=== PATIENT | male | born 1995 | race Caucasian/White ===

== ENCOUNTER 2016-10-14 21:29 | Emergency (ER) | payer OTHER ==
[~2016-10-14] VITALS: Ht 172.7 cm; Wt 73.0 kg
[~2016-10-14 21:29] MED LIST: ALBUTEROL INHALER; FOLI-43 PO; GEMF600T PO; HALO5TAB PO; LEVVL SUBCUT; LISI2.5T47 PO; METF10002 PO; MULT-348 PO
[2016-10-15] MEDS ORDERED: ONDANSETRON HCL 4MG/2ML VIAL IV STA (00:04)
[2016-10-15] MEDS ORDERED: SODIUM CHLORIDE 0.9% 1,000 ML IV ONE (00:04)
[2016-10-15] MEDS ORDERED: MAGNESIUM/ALUMINUM HYDROXIDE/SIMETHICONE 30ML UDC PO STA (00:04)
[2016-10-15 00:33] LABS: BASOPHILS % 0.8 % (0.0-2.0); EOSINOPHILS % 7.4 % (0.0-5.0); HEMATOCRIT. 38.5 % (42.0-52.0); HEMOGLOBIN. 13.5 g/dL (14.0-18.0); LYMPHOCYTES % 49.5 % (20.0-50.0); MEAN CORPUSCULAR HEMOGLOBIN 29.2 pg (28.0-32.0); MEAN CORPUSCULAR HGB CONC 34.9 g/dL (31.0-37.0); MEAN CORPUSCULAR VOLUME 83.6 fL (80.0-94.0); MEAN PLATELET VOLUME 8.8 fl (7.4-10.4); MONOCYTES % 4.9 % (2.0-8.0); NEUTROPHILS % 37.4 % (40.0-76.0); PLATELET 224 x1000/uL (130-400); RED BLOOD CELL COUNT 4.61 mill/uL (4.7-6.1); RED CELL DISTRIBUTION WIDTH 13.4 % (11.6-14.6); WHITE BLOOD COUNT 5.6 x1000/uL (4.5-11.0)
[2016-10-15 00:35] LABS: CHLORIDE 102 mEq/L (98-107); INDEX HEMOLYSI 2 (1-3); INDEX ICTERIC 1 (1-4); INDEX LIPEMIC 1 (1-3)
[2016-10-15 00:41] LABS: ANION GAP 15; CALCIUM 8.1 mg/dL (8.5-10.1); CARBON DIOXIDE 24 mEq/L (21-32); LIPASE 89 IU/L (73-393); UREA NITROGEN BLOOD 13 mg/dL (7-21); eGFR > 60 mL/min (>60)
[2016-10-15 04:30] VITALS: BP 102/68
== END 2016-10-15 04:33 | disposition home or self-care (01) ==
LOC: ER 21:29
DX: R10.13 Epigastric pain (principal); J44.9 Chronic obstructive pulmonary disease, unspecified; J45.909 Unspecified asthma, uncomplicated; F20.9 Schizophrenia, unspecified; E11.9 Type 2 diabetes mellitus without complications; F17.200 Nicotine dependence, unspecified, uncomplicated; Z79.4 Long term (current) use of insulin
CPT/HCPCS: 36415; 71010; 80048; 83690; 85025; 96361; 96374; 99285; J2405; J7030; Z7610

== ENCOUNTER 2016-11-21 16:11 | Emergency (ER) | payer OTHER ==
[~2016-11-21] VITALS: Ht 175.3 cm; Wt 79.0 kg
[2016-11-21] MEDS ORDERED: FAMOTIDINE 20MG/2ML VIAL IV STA (17:27)
[2016-11-21] MEDS ORDERED: ONDANSETRON HCL 4MG/2ML VIAL IV STA (17:27)
[2016-11-21] MEDS ORDERED: KETOROLAC 30MG/ML VIAL IV STA (17:27)
[2016-11-21] MEDS ORDERED: SODIUM CHLORIDE 0.9% 1,000 ML IV ONE ×2 (17:27→19:15)
[2016-11-21 18:18] LABS: HEMATOCRIT. 37.6 % (42.0-52.0); MEAN CORPUSCULAR HEMOGLOBIN 28.4 pg (28.0-32.0); MEAN CORPUSCULAR HGB CONC 34.2 g/dL (31.0-37.0); MEAN CORPUSCULAR VOLUME 82.9 fL (80.0-94.0); RED CELL DISTRIBUTION WIDTH 13.5 % (11.6-14.6)
[2016-11-21 18:19] LABS: DIFFERENTIAL COMMENT 1; WHITE BLOOD COUNT 9.1 x1000/uL (4.5-11.0)
[2016-11-21 18:20] LABS: PLATELET 258 x1000/uL (130-400); RED BLOOD CELL COUNT 4.74 mill/uL (4.7-6.1)
[2016-11-21 18:21] LABS: MEAN PLATELET VOLUME 9.2 fl (7.4-10.4)
[2016-11-21 18:22] LABS: INR 0.9; PROTHROMBIN TIME 9.8 sec
[2016-11-21 18:26] LABS: HEMOGLOBIN. 12.9 g/dL (14.0-18.0)
[2016-11-21 18:43] LABS: ALBUMIN 3.5 g/dL (3.4-5.0); CALCIUM 7.8 mg/dL (8.5-10.1); CARBON DIOXIDE 24 mEq/L (21-32); LIPASE 214 IU/L (73-393); UREA NITROGEN BLOOD 13 mg/dL (7-21); eGFR > 60 mL/min (>60)
[2016-11-21 19:04] LABS: ALANINE AMINOTRANSFERASE 27 IU/L (13-61); ANION GAP 16; CHLORIDE 100 mEq/L (98-107)
[2016-11-21 19:21] LABS: CLARITY URINE CLEAR (CLEAR); COLOR URINE YELLOW (YELLOW); GLUCOSE URINE 3+ (NEGATIVE); KETONES URINE TRACE (NEGATIVE); LEUKOCYTE ESTERASE URINE NEGATIVE (NEGATIVE); NITRITE URINE NEGATIVE (NEGATIVE); OCCULT BLOOD URINE NEGATIVE (NEGATIVE); PROTEIN URINE 2+ (NEGATIVE); SPECIFIC GRAVITY URINE 1.031 (1.005-1.030); UROBILINOGEN URINE 0.2 E.U./dL (0.2-1.0)
[2016-11-21 19:33] LABS: PLATELET ESTIMATE NORMAL
[2016-11-21 19:54] LABS: BACTERIA URINE TRACE; RBC URINE 0-2 /hpf (0-2); WBC URINE 0-2 /hpf (0-2); YEAST URINE 1+
[2016-11-21 19:55] LABS: SQUAMOUS EPITHELIAL CELL URINE RARE /lpf (RARE/1+)
[2016-11-21] MEDS ORDERED: IPRATROPIUM/ALBUTEROL 0.5-3(2.5)MG/3ML NEB HHN ONE (20:15)
[2016-11-21 21:15] VITALS: BP 127/82
== END 2016-11-21 21:45 | disposition home or self-care (01) ==
LOC: ER 16:12
DX: R10.13 Epigastric pain (principal); R11.2 Nausea with vomiting, unspecified; E11.9 Type 2 diabetes mellitus without complications; F17.210 Nicotine dependence, cigarettes, uncomplicated; Z79.4 Long term (current) use of insulin; Z79.899 Other long term (current) drug therapy
CPT/HCPCS: 36415; 80053; 81001; 82010; 82962; 83690; 85025; 85610; 94640; 96361; 96374; 96375; 99284; J1885; J2405; J3490; J7030; Z7610; J7620

== ENCOUNTER 2017-01-01 20:49 | Emergency (ER) | payer MEDICAID, OTHER ==
[~2017-01-01] VITALS: Ht 170.2 cm; Wt 88.0 kg
[2017-01-02] MEDS ORDERED: ONDANSETRON HCL 4MG/2ML VIAL IV STA (00:06)
[2017-01-02] MEDS ORDERED: KETOROLAC 30MG/ML VIAL IV STA (00:06)
[2017-01-02 00:45] LABS: BASOPHILS % 0.9 % (0.0-2.0); EOSINOPHILS % 3.3 % (0.0-5.0); HEMATOCRIT. 37.4 % (42.0-52.0); HEMOGLOBIN. 13.3 g/dL (14.0-18.0); MEAN CORPUSCULAR HEMOGLOBIN 29.1 pg (28.0-32.0); MEAN CORPUSCULAR VOLUME 81.7 fL (80.0-94.0); MEAN PLATELET VOLUME 8.5 fl (7.4-10.4); MONOCYTES % 5.1 % (2.0-8.0); NEUTROPHILS % 70.7 % (40.0-76.0); PLATELET 230 x1000/uL (130-400); RED BLOOD CELL COUNT 4.58 mill/uL (4.7-6.1); RED CELL DISTRIBUTION WIDTH 13.5 % (11.6-14.6)
[2017-01-02 00:53] LABS: INR 1.1; PROTHROMBIN TIME 11.1 sec
[2017-01-02 01:00] LABS: CARBON DIOXIDE 23 mEq/L (21-32); CHLORIDE 94 mEq/L (98-107); ETHANOL BLOOD < 10 mg/dL
[2017-01-02 01:17] LABS: CLARITY URINE CLEAR (CLEAR); COLOR URINE YELLOW (YELLOW); GLUCOSE URINE 3+ (NEGATIVE); KETONES URINE TRACE (NEGATIVE); LEUKOCYTE ESTERASE URINE NEGATIVE (NEGATIVE); NITRITE URINE NEGATIVE (NEGATIVE); OCCULT BLOOD URINE NEGATIVE (NEGATIVE); PROTEIN URINE NEGATIVE (NEGATIVE); SPECIFIC GRAVITY URINE 1.024 (1.005-1.030); UROBILINOGEN URINE 0.2 E.U./dL (0.2-1.0)
[2017-01-02 01:39] LABS: *AMPHETAMINES SCREEN URINE NEGATIVE (NEGATIVE); *BENZODIAZEPINES SCREEN URINE NEGATIVE (NEGATIVE); *COCAINE SCREEN URINE NEGATIVE (NEGATIVE); CANNABINOID URINE SCREEN NEGATIVE (NEGATIVE); METHADONE URINE SCREEN NEGATIVE (NEGATIVE); OPIATES URINE SCREEN NEGATIVE (NEGATIVE); PHENCYCLIDINE URINE SCREEN NEGATIVE (NEGATIVE)
[2017-01-02] MEDS ORDERED: SODIUM CHLORIDE 0.9% 1,000 ML IV ONE ×2 (01:57)
[2017-01-02 02:05] LABS: *BARBITURATES SCREEN URINE NEGATIVE (NEGATIVE)
[2017-01-02] MEDS ORDERED: INSULIN REGULAR (HUMULIN R) 300UNITS/3ML SUBCUT ONE (04:30)
[2017-01-02 06:50] VITALS: BP 97/60
== END 2017-01-02 07:19 | disposition home or self-care (01) ==
LOC: ER 21:15
DX: K85.90 Acute pancreatitis without necrosis or infection, unspecified (principal); R73.9 Hyperglycemia, unspecified; E86.0 Dehydration; F20.9 Schizophrenia, unspecified
CPT/HCPCS: 36415; 80053; 80305; 81001; 82962; 83690; 85025; 85610; 96361; 96372; 96374; 96375; 99285; G0482; J1885; J2405; J7030; Z7610; J1815

== ENCOUNTER 2017-04-11 13:26 | Inpatient (IN) | payer MEDICAID ==
[~2017-04-11] VITALS: Ht 172.7 cm; Wt 86.2 kg
[2017-04-11] MEDS ORDERED: ONDANSETRON HCL 4MG/2ML VIAL IV STA ×2 (14:29→20:17)
[2017-04-11] MEDS ORDERED: KETOROLAC 30MG/ML VIAL IV STA (14:29)
[2017-04-11] MEDS ORDERED: SODIUM CHLORIDE 0.9% 1,000 ML IV ONE ×2 (14:29)
[2017-04-11] MEDS ORDERED: INSULIN REGULAR (HUMULIN R) UD 100 UNITS/ML SYR SUBCUT ONE (14:30)
[2017-04-11] MEDS ORDERED: FAMOTIDINE 20MG/2ML VIAL IV ONE (14:30)
[2017-04-11] MEDS ORDERED: INSULIN REGULAR (HUMULIN R) 300UNITS/3ML SUBCUT NR (16:15)
[2017-04-11 16:32] LABS: CARBON DIOXIDE 17 mEq/L (21-32); CHLORIDE 93 mEq/L (98-107)
[2017-04-11 16:40] LABS: BETA HYDROXYBUTYRATE 6.4 mMol/L (0.0-0.3)
[2017-04-11 16:41] LABS: ETHANOL BLOOD < 10 mg/dL
[2017-04-11 17:07] LABS: CLARITY URINE CLEAR (CLEAR); COLOR URINE YELLOW (YELLOW); GLUCOSE URINE 3+ (NEGATIVE); KETONES URINE 4+ (NEGATIVE); LEUKOCYTE ESTERASE URINE NEGATIVE (NEGATIVE); NITRITE URINE NEGATIVE (NEGATIVE); OCCULT BLOOD URINE NEGATIVE (NEGATIVE); PROTEIN URINE 2+ (NEGATIVE); SPECIFIC GRAVITY URINE 1.044 (1.005-1.030); UROBILINOGEN URINE 0.2 E.U./dL (0.2-1.0)
[2017-04-11] MEDS ORDERED: INSULIN REGULAR (HUMULIN R) UD 100 UNITS/ML SYR IV ONE (17:15)
[2017-04-11 17:25] LABS: *AMPHETAMINES SCREEN URINE NEGATIVE (NEGATIVE); *BARBITURATES SCREEN URINE NEGATIVE (NEGATIVE); *BENZODIAZEPINES SCREEN URINE NEGATIVE (NEGATIVE); *COCAINE SCREEN URINE NEGATIVE (NEGATIVE); CANNABINOID URINE SCREEN NEGATIVE (NEGATIVE); METHADONE URINE SCREEN NEGATIVE (NEGATIVE); OPIATES URINE SCREEN NEGATIVE (NEGATIVE); PHENCYCLIDINE URINE SCREEN NEGATIVE (NEGATIVE)
[2017-04-11 17:28] LABS: BASOPHILS % 0.6 % (0.0-2.0); EOSINOPHILS % 1.3 % (0.0-5.0); HEMATOCRIT. 44.4 % (42.0-52.0); LYMPHOCYTES % 17.3 % (20.0-50.0); MEAN CORPUSCULAR VOLUME 79.4 fL (80.0-94.0); MEAN PLATELET VOLUME 9.5 fl (7.4-10.4); MONOCYTES % 3.3 % (2.0-8.0); NEUTROPHILS % 77.5 % (40.0-76.0); PLATELET 230 x1000/uL (130-400); RED BLOOD CELL COUNT 5.59 mill/uL (4.7-6.1)
[2017-04-11 17:29] LABS: HEMOGLOBIN. 14.2 g/dL (14.0-18.0)
[2017-04-11 17:30] LABS: MEAN CORPUSCULAR HEMOGLOBIN 25.4 pg (28.0-32.0)
[2017-04-11] MEDS ORDERED: INSULIN REGULAR (HUMULIN R) 300UNITS/3ML IV NR (17:56)
[2017-04-11 18:01] LABS: CARBON DIOXIDE 18 mEq/L (21-32); CHLORIDE 101 mEq/L (98-107)
[2017-04-11 18:02] LABS: BETA HYDROXYBUTYRATE 6.1 mMol/L (0.0-0.3)
[2017-04-11] MEDS ORDERED: FLUCONAZOLE 100MG TABLET PO ONE (19:00)
[2017-04-11] MEDS ORDERED: CEFTRIAXONE 1 G PREMIX 50 ML IV ONE (19:00)
[2017-04-11] MEDS ORDERED: MORPHINE SULFATE 4 MG/ML CPJ (NOT FOR IM USE) IV STA (20:17)
[2017-04-11] MEDS ORDERED: KETOROLAC 30MG/ML VIAL IV PRN (20:45)
[2017-04-11] MEDS ORDERED: MAGNESIUM/ALUMINUM HYDROXIDE/SIMETHICONE 30ML UDC PO PRN (20:45)
[2017-04-11] MEDS ORDERED: ONDANSETRON HCL 4MG/2ML VIAL IV PRN (20:45)
[2017-04-11] MEDS ORDERED: CLONIDINE 0.1MG TABLET PO PRN (20:45)
[2017-04-11] MEDS ORDERED: IPRATROPIUM/ALBUTEROL 0.5-3(2.5)MG/3ML NEB INH PRN (20:45)
[2017-04-11 21:30] VITALS: BP 123/82
[2017-04-11 22:00] VITALS: BP 123/82
[2017-04-11] MEDS ORDERED: DEXTROSE 50% WATER 50ML SYRINGE IV PRN (23:00)
[2017-04-11] MEDS: SODIUM CHLORIDE 0.9% 1,000 ML IV SCH (23:21)
[2017-04-11] MEDS: INSULIN DETEMIR UD 100 UNITS/ML SYR SUBCUT SCH (23:26)
[2017-04-11] MEDS: ENOXAPARIN 40MG/0.4ML SYR SUBCUT SCH (23:30)
[2017-04-11 23:39] LABS: CREATINE KINASE 29 IU/L (39-308); CREATINE KINASE MB FRACTION < 0.5 ng/mL (0.5-3.6); TROPONIN I < 0.02 ng/mL (0.00-0.04)
[2017-04-12] VITALS: BP 127/85
[2017-04-12] MEDS: MORPHINE SULFATE 4 MG/ML CPJ (NOT FOR IM USE) IV PRN ×6 (00:33→22:41)
[2017-04-12 04:00] VITALS: BP 130/83
[2017-04-12] MEDS: SODIUM CHLORIDE 0.9% 1,000 ML IV SCH ×3 (06:20→22:46)
[2017-04-12 06:57] LABS: BASOPHILS % 0.5 % (0.0-2.0); HEMATOCRIT. 43.9 % (42.0-52.0); HEMOGLOBIN. 15.2 g/dL (14.0-18.0); LYMPHOCYTES % 7.7 % (20.0-50.0); MEAN CORPUSCULAR HEMOGLOBIN 28.1 pg (28.0-32.0); MEAN CORPUSCULAR VOLUME 81.1 fL (80.0-94.0); MONOCYTES % 4.6 % (2.0-8.0); NEUTROPHILS % 87.2 % (40.0-76.0); PLATELET 169 x1000/uL (130-400); RED BLOOD CELL COUNT 5.42 mill/uL (4.7-6.1); RED CELL DISTRIBUTION WIDTH 14.8 % (11.6-14.6)
[2017-04-12] MEDS: INSULIN LISPRO 100 UNITS/ML SUBCUT SCH ×5 (07:04→21:24)
[2017-04-12] MEDS: BLOOD SUGAR DIAGNOSTIC STRIP TEST SCH ×4 (07:04→21:21)
[2017-04-12 07:36] LABS: CARBON DIOXIDE 13 mEq/L (21-32); CHLORIDE 106 mEq/L (98-107); CREATINE KINASE 25 IU/L (39-308); CREATINE KINASE MB FRACTION < 0.5 ng/mL (0.5-3.6); HDL CHOLESTEROL 19 mg/dL (40-59); LDL CHOLESTEROL 61 mg/dL (5-100); TROPONIN I < 0.02 ng/mL (0.00-0.04)
[2017-04-12 08:00] VITALS: BP 132/80
[2017-04-12] MEDS: FENOFIBRATE NANOCRYSTALLIZED 145MG TABLET PO SCH (08:59)
[2017-04-12] MEDS: INSULIN DETEMIR UD 100 UNITS/ML SYR SUBCUT SCH ×2 (10:23→22:45)
[2017-04-12 12:00] VITALS: BP 122/74
[2017-04-12] MEDS ORDERED: DEXTROSE 50% WATER 50ML SYRINGE IV PRN (12:45)
[2017-04-12 16:00] VITALS: BP 116/76
[2017-04-12] MEDS ORDERED: BLOOD SUGAR DIAGNOSTIC STRIP TEST SCH (17:10)
[2017-04-12] MEDS: BENZTROPINE MESYLATE 1MG TABLET PO SCH (17:22)
[2017-04-12] MEDS: HALOPERIDOL 5MG TABLET PO SCH (17:22)
[2017-04-12 20:00] VITALS: BP 104/62
[2017-04-12] MEDS: ENOXAPARIN 40MG/0.4ML SYR SUBCUT SCH (21:22)
[2017-04-13] VITALS: BP 100/54
[2017-04-13 04:00] VITALS: BP 96/56
[2017-04-13] MEDS: SODIUM CHLORIDE 0.9% 1,000 ML IV SCH ×2 (06:31→15:51)
[2017-04-13] MEDS: BLOOD SUGAR DIAGNOSTIC STRIP TEST SCH ×4 (06:31→20:56)
[2017-04-13] MEDS: INSULIN LISPRO 100 UNITS/ML SUBCUT SCH ×4 (06:31→21:07)
[2017-04-13 06:39] LABS: BASOPHILS % 0.3 % (0.0-2.0); EOSINOPHILS % 2.2 % (0.0-5.0); HEMATOCRIT. 36.8 % (42.0-52.0); HEMOGLOBIN. 12.7 g/dL (14.0-18.0); LYMPHOCYTES % 24.7 % (20.0-50.0); MEAN CORPUSCULAR HEMOGLOBIN 28.1 pg (28.0-32.0); MEAN CORPUSCULAR VOLUME 81.6 fL (80.0-94.0); MEAN PLATELET VOLUME 8.6 fl (7.4-10.4); MONOCYTES % 6.1 % (2.0-8.0); NEUTROPHILS % 66.7 % (40.0-76.0); PLATELET 120 x1000/uL (130-400); RED BLOOD CELL COUNT 4.51 mill/uL (4.7-6.1); RED CELL DISTRIBUTION WIDTH 15.1 % (11.6-14.6)
[2017-04-13 08:00] VITALS: BP 98/54
[2017-04-13 08:14] LABS: CARBON DIOXIDE 21 mEq/L (21-32); CHLORIDE 107 mEq/L (98-107)
[2017-04-13] MEDS: HALOPERIDOL 5MG TABLET PO SCH (09:16)
[2017-04-13] MEDS: BENZTROPINE MESYLATE 1MG TABLET PO SCH (09:16)
[2017-04-13] MEDS: FENOFIBRATE NANOCRYSTALLIZED 145MG TABLET PO SCH (09:16)
[2017-04-13] MEDS: MORPHINE SULFATE 4 MG/ML CPJ (NOT FOR IM USE) IV PRN (09:23)
[2017-04-13] MEDS: INSULIN DETEMIR UD 100 UNITS/ML SYR SUBCUT SCH ×2 (10:39→21:07)
[2017-04-13] MEDS ORDERED: HYDROCODONE/ACETAMINOPHEN 5/325MG TABLET PO PRN (10:45)
[2017-04-13] MEDS ORDERED: POTASSIUM CHLORIDE 20MEQ TABLET SR PO NR (11:00)
[2017-04-13 12:00] VITALS: BP 97/63
[2017-04-13 16:00] VITALS: BP 94/48
[2017-04-13 20:11] VITALS: BP 91/51
[2017-04-13] MEDS: ENOXAPARIN 40MG/0.4ML SYR SUBCUT SCH (21:03)
[2017-04-14] VITALS: BP 98/47
[2017-04-14 04:00] VITALS: BP 95/42
[2017-04-14] MEDS: SODIUM CHLORIDE 0.9% 1,000 ML IV SCH (04:30)
[2017-04-14] MEDS: INSULIN LISPRO 100 UNITS/ML SUBCUT SCH ×2 (06:29→12:31)
[2017-04-14] MEDS: BLOOD SUGAR DIAGNOSTIC STRIP TEST SCH ×2 (06:29→12:31)
[2017-04-14 07:23] LABS: BASOPHILS % 0.4 % (0.0-2.0); HEMATOCRIT. 32.4 % (42.0-52.0); HEMOGLOBIN. 11.1 g/dL (14.0-18.0); LYMPHOCYTES % 35.2 % (20.0-50.0); MEAN CORPUSCULAR HEMOGLOBIN 27.9 pg (28.0-32.0); MEAN CORPUSCULAR VOLUME 81.2 fL (80.0-94.0); MEAN PLATELET VOLUME 8.7 fl (7.4-10.4); MONOCYTES % 10.4 % (2.0-8.0); PLATELET 93 x1000/uL (130-400); RED CELL DISTRIBUTION WIDTH 15.4 % (11.6-14.6)
[2017-04-14 08:00] VITALS: BP 110/69
[2017-04-14 08:38] LABS: CHLORIDE 109 mEq/L (98-107)
[2017-04-14 08:50] LABS: CARBON DIOXIDE 26 mEq/L (21-32)
[2017-04-14] MEDS: FENOFIBRATE NANOCRYSTALLIZED 145MG TABLET PO SCH (09:03)
[2017-04-14] MEDS: BENZTROPINE MESYLATE 1MG TABLET PO SCH (09:03)
[2017-04-14] MEDS: HALOPERIDOL 5MG TABLET PO SCH (09:03)
[2017-04-14] MEDS: INSULIN DETEMIR UD 100 UNITS/ML SYR SUBCUT SCH (09:50)
[2017-04-14] MEDS ORDERED: POTASSIUM CHLORIDE 20MEQ TABLET SR PO NR (10:15)
[2017-04-14] MEDS: MORPHINE SULFATE 4 MG/ML CPJ (NOT FOR IM USE) IV PRN (10:46)
[2017-04-14 12:00] VITALS: BP 103/58
[2017-04-14 15:09] VITALS: BP 103/58
== END 2017-04-14 16:10 | disposition home or self-care (01) | DRG 282 ==
LOC: ER 13:36 → 8WST 18:26 → EDBEDREQ 18:28 → ENRESERV 19:08
PROVIDERS: ADMIT Internal Medicine; ATTEND Internal Medicine
DX: K85.90 Acute pancreatitis without necrosis or infection, unspecified (principal); R65.11 Systemic inflammatory response syndrome (SIRS) of non-infectious origin with acute organ dysfunction; E13.10 Other specified diabetes mellitus with ketoacidosis without coma; E87.8 Other disorders of electrolyte and fluid balance, not elsewhere classified; E11.65 Type 2 diabetes mellitus with hyperglycemia; I10 Essential (primary) hypertension; D18.03 Hemangioma of intra-abdominal structures; F10.10 Alcohol abuse, uncomplicated; E07.81 Sick-euthyroid syndrome; E78.1 Pure hyperglyceridemia; Z79.4 Long term (current) use of insulin; Z91.14 Patient's other noncompliance with medication regimen; Z79.84 Long term (current) use of oral hypoglycemic drugs; Z79.899 Other long term (current) drug therapy; E83.51 Hypocalcemia
CPT/HCPCS: 36415; 71010; 76705; 80048; 80053; 80061; 80305; 81001; 82010; 82550; 82553; 82962; 83690; 83735; 84443; 84484; 85025; 86850; 86900; 87040; 87086; 93005; 93970; 94640; 96361; 96374; 96375; 96376; 99291; G0482; J0696; J1630; J1650; J1815; J1885; J2270; J2405; J3490; J7030; J7620

== ENCOUNTER 2017-07-17 14:22 | Inpatient (IN) | payer MEDICAID ==
[~2017-07-17] VITALS: Ht 172.7 cm; Wt 86.6 kg
[~2017-07-17 14:22] MED LIST changes: +BENZ1TAB7 GT
[2017-07-17] MEDS ORDERED: MORPHINE SULFATE 4 MG/ML CPJ (NOT FOR IM USE) IV STA (22:49)
[2017-07-17] MEDS ORDERED: ONDANSETRON HCL 4MG/2ML VIAL IV STA (22:49)
[2017-07-17] MEDS ORDERED: KETOROLAC 30MG/ML VIAL IV STA (22:49)
[2017-07-17] MEDS ORDERED: SODIUM CHLORIDE 0.9% 1,000 ML IV ONE ×2 (22:49→23:57)
[2017-07-17 23:41] LABS: BASOPHILS % 0.3 % (0.0-2.0); EOSINOPHILS % 4.3 % (0.0-5.0); HEMATOCRIT. 36.7 % (42.0-52.0); HEMOGLOBIN. 12.3 g/dL (14.0-18.0); LYMPHOCYTES % 22.9 % (20.0-50.0); MEAN CORPUSCULAR HEMOGLOBIN 28.8 pg (28.0-32.0); MEAN CORPUSCULAR VOLUME 86.1 fL (80.0-94.0); MEAN PLATELET VOLUME 8.6 fl (7.4-10.4); MONOCYTES % 6.8 % (2.0-8.0); NEUTROPHILS % 65.7 % (40.0-76.0); PLATELET 157 x1000/uL (130-400); RED BLOOD CELL COUNT 4.26 mill/uL (4.7-6.1); RED CELL DISTRIBUTION WIDTH 16.1 % (11.6-14.6)
[2017-07-17 23:44] LABS: CHLORIDE 97 mEq/L (98-107)
[2017-07-17 23:47] LABS: INR 1.1; PARTIAL THROMBOPLASTIN TIME 27.3 sec (23.4-31.0); PROTHROMBIN TIME 11.2 sec (9.4-11.6)
[2017-07-17 23:52] LABS: CARBON DIOXIDE 26 mEq/L (21-32); ETHANOL BLOOD < 10 mg/dL
[2017-07-18] MEDS ORDERED: INSULIN REGULAR (HUMULIN R) 300UNITS/3ML SUBCUT ONE
[2017-07-18 01:12] LABS: CLARITY URINE CLEAR (CLEAR); COLOR URINE YELLOW (YELLOW); KETONES URINE 3+ (NEGATIVE); LEUKOCYTE ESTERASE URINE NEGATIVE (NEGATIVE); NITRITE URINE NEGATIVE (NEGATIVE); OCCULT BLOOD URINE NEGATIVE (NEGATIVE); PH URINE 5.5 (4.5-8.0); PROTEIN URINE NEGATIVE (NEGATIVE); SPECIFIC GRAVITY URINE 1.051 (1.005-1.030); UROBILINOGEN URINE 0.2 E.U./dL (0.2-1.0)
[2017-07-18 01:30] LABS: *AMPHETAMINES SCREEN URINE NEGATIVE (NEGATIVE); *BARBITURATES SCREEN URINE NEGATIVE (NEGATIVE); *BENZODIAZEPINES SCREEN URINE NEGATIVE (NEGATIVE); *COCAINE SCREEN URINE NEGATIVE (NEGATIVE); CANNABINOID URINE SCREEN NEGATIVE (NEGATIVE); METHADONE URINE SCREEN NEGATIVE (NEGATIVE); OPIATES URINE SCREEN NEGATIVE (NEGATIVE); PHENCYCLIDINE URINE SCREEN NEGATIVE (NEGATIVE)
[2017-07-18] MEDS ORDERED: CEFTRIAXONE 1 G PREMIX 50 ML IV ONE (03:30)
[2017-07-18] MEDS ORDERED: IOHEXOL-300 100 ML BOTTLE ONE (04:29)
[2017-07-18] MEDS ORDERED: MORPHINE SULFATE 4 MG/ML CPJ (NOT FOR IM USE) IV ONE (05:00)
[2017-07-18 05:30] VITALS: BP 88/50
[2017-07-18 05:35] VITALS: BP 88/50
[2017-07-18 08:00] VITALS: BP 96/51
[2017-07-18] MEDS ORDERED: GUAIFENESIN 200MG/10ML SUGAR FREE UDC PO PRN (10:45)
[2017-07-18] MEDS ORDERED: MAGNESIUM/ALUMINUM HYDROXIDE/SIMETHICONE 30ML UDC PO PRN (10:45)
[2017-07-18] MEDS ORDERED: CLONIDINE 0.1MG TABLET PO PRN (10:45)
[2017-07-18] MEDS ORDERED: ONDANSETRON HCL 4MG/2ML VIAL IV PRN (10:45)
[2017-07-18] MEDS ORDERED: DOCUSATE SODIUM 100MG CAPSULE PO PRN (10:45)
[2017-07-18] MEDS ORDERED: HYDROCODONE/ACETAMINOPHEN 5/325MG TABLET PO PRN (10:45)
[2017-07-18] MEDS ORDERED: IPRATROPIUM/ALBUTEROL 0.5-3(2.5)MG/3ML NEB INH PRN (10:45)
[2017-07-18] MEDS ORDERED: ACETAMINOPHEN 325MG TABLET PO PRN (10:45)
[2017-07-18] MEDS ORDERED: DEXTROSE 50% WATER 50ML SYRINGE IV PRN (11:30)
[2017-07-18 12:00] VITALS: BP 101/56
[2017-07-18] MEDS: INSULIN DETEMIR UD 100 UNITS/ML SYR SUBCUT SCH ×2 (12:44→21:48)
[2017-07-18] MEDS: BLOOD SUGAR DIAGNOSTIC STRIP TEST SCH ×3 (12:45→21:49)
[2017-07-18] MEDS: INSULIN LISPRO 100 UNITS/ML SUBCUT SCH ×3 (12:45→21:48)
[2017-07-18] MEDS ORDERED: MVI, ADULT NO.1 10 ML, FOLIC ACID 1 MG, THIAMINE HCL 100 MG in SODIUM CHLORIDE 0.9% 1,0... IV SCH ×4 (13:00)
[2017-07-18] MEDS: MORPHINE SULFATE 4 MG/ML CPJ (NOT FOR IM USE) IV PRN (13:30)
[2017-07-18 16:00] VITALS: BP 102/63
[2017-07-18 20:00] VITALS: BP 93/54
[2017-07-19] VITALS: BP 109/71
[2017-07-19] MEDS: MORPHINE SULFATE 4 MG/ML CPJ (NOT FOR IM USE) IV PRN ×4 (00:25→22:27)
[2017-07-19 04:20] VITALS: BP 90/50
[2017-07-19] MEDS ORDERED: INSLIS SUBCUT (05:00)
[2017-07-19] MEDS: BLOOD SUGAR DIAGNOSTIC STRIP TEST SCH ×4 (06:23→21:40)
[2017-07-19 07:28] LABS: BASOPHILS % 0.6 % (0.0-2.0); EOSINOPHILS % 8.9 % (0.0-5.0); HEMATOCRIT. 32.9 % (42.0-52.0); LYMPHOCYTES % 44.7 % (20.0-50.0); MEAN CORPUSCULAR HEMOGLOBIN 28.8 pg (28.0-32.0); MEAN CORPUSCULAR VOLUME 86.3 fL (80.0-94.0); MEAN PLATELET VOLUME 8.6 fl (7.4-10.4); NEUTROPHILS % 36.8 % (40.0-76.0); PLATELET 169 x1000/uL (130-400); RED BLOOD CELL COUNT 3.81 mill/uL (4.7-6.1)
[2017-07-19 08:00] VITALS: BP 118/52
[2017-07-19 08:16] LABS: CARBON DIOXIDE 29 mEq/L (21-32); CHLORIDE 103 mEq/L (98-107)
[2017-07-19] MEDS: INSULIN LISPRO 100 UNITS/ML SUBCUT SCH ×4 (08:50→21:43)
[2017-07-19] MEDS: INSULIN DETEMIR UD 100 UNITS/ML SYR SUBCUT SCH ×2 (11:50→22:24)
[2017-07-19 12:03] VITALS: BP 96/62
[2017-07-19 16:10] VITALS: BP 99/53
[2017-07-19 20:00] VITALS: BP 102/69
[2017-07-20] VITALS: BP 103/68
[2017-07-20] MEDS: MORPHINE SULFATE 4 MG/ML CPJ (NOT FOR IM USE) IV PRN (03:00)
[2017-07-20 04:00] VITALS: BP 98/60
[2017-07-20] MEDS: BLOOD SUGAR DIAGNOSTIC STRIP TEST SCH (07:51)
[2017-07-20] MEDS: INSULIN LISPRO 100 UNITS/ML SUBCUT SCH (09:18)
[2017-07-20 10:14] VITALS: BP 101/68
[2017-07-20] MEDS: INSULIN DETEMIR UD 100 UNITS/ML SYR SUBCUT SCH (10:48)
== END 2017-07-20 11:35 | disposition home or self-care (01) | DRG 282 ==
LOC: ER 14:25 → 6EST 07-18 03:29 → EDBEDREQ 07-18 03:31 → EDBEDREQTM 07-18 03:31 → ENRESERV 07-18 04:26
PROVIDERS: ADMIT Internal Medicine; ATTEND Internal Medicine
DX: K85.90 Acute pancreatitis without necrosis or infection, unspecified (principal); E87.8 Other disorders of electrolyte and fluid balance, not elsewhere classified; E44.0 Moderate protein-calorie malnutrition; K70.30 Alcoholic cirrhosis of liver without ascites; E11.65 Type 2 diabetes mellitus with hyperglycemia; R16.2 Hepatomegaly with splenomegaly, not elsewhere classified; Z60.2 Problems related to living alone; D64.9 Anemia, unspecified; Z91.19 Patient's noncompliance with other medical treatment and regimen; Z79.4 Long term (current) use of insulin; Z91.14 Patient's other noncompliance with medication regimen; Z88.8 Allergy status to other drugs, medicaments and biological substances; Z79.84 Long term (current) use of oral hypoglycemic drugs; Z79.899 Other long term (current) drug therapy; Z68.29 Body mass index [BMI] 29.0-29.9, adult
CPT/HCPCS: 36415; 71045; 74177; 76705; 80053; 80305; 81001; 82010; 82962; 83690; 84478; 85025; 85610; 85730; 86850; 86900; 87040; 87086; 93005; 96361; 96374; 96375; 99285; G0482; J0696; J1815; J1885; J2270; J2405; J3411; J3490; J7030; Q9967

== ENCOUNTER 2017-07-21 21:25 | Inpatient (IN) | payer MEDICAID ==
[~2017-07-21] VITALS: Ht 172.7 cm; Wt 71.7 kg
[~2017-07-21 21:25] MED LIST changes: +INSLIS SUBCUT
[2017-07-22] MEDS ORDERED: SODIUM CHLORIDE 0.9% 1,000 ML IV ONE (05:47)
[2017-07-22] MEDS ORDERED: MORPHINE SULFATE 4 MG/ML CPJ (NOT FOR IM USE) IV ONE (06:00)
[2017-07-22] MEDS ORDERED: FAMOTIDINE 20MG/2ML VIAL IV ONE (06:00)
[2017-07-22] MEDS ORDERED: ONDANSETRON HCL 4MG/2ML VIAL IV ONE (06:00)
[2017-07-22 06:02] LABS: CLARITY URINE CLEAR (CLEAR); COLOR URINE YELLOW (YELLOW); KETONES URINE NEGATIVE (NEGATIVE); LEUKOCYTE ESTERASE URINE NEGATIVE (NEGATIVE); NITRITE URINE NEGATIVE (NEGATIVE); OCCULT BLOOD URINE NEGATIVE (NEGATIVE); PROTEIN URINE NEGATIVE (NEGATIVE); SPECIFIC GRAVITY URINE 1.044 (1.005-1.030); UROBILINOGEN URINE 0.2 E.U./dL (0.2-1.0)
[2017-07-22 06:20] LABS: BASOPHILS % 0.6 % (0.0-2.0); EOSINOPHILS % 3.8 % (0.0-5.0); HEMATOCRIT. 36.3 % (42.0-52.0); HEMOGLOBIN. 12.6 g/dL (14.0-18.0); LYMPHOCYTES % 24.8 % (20.0-50.0); MEAN CORPUSCULAR HEMOGLOBIN 29.8 pg (28.0-32.0); MEAN CORPUSCULAR VOLUME 85.6 fL (80.0-94.0); MEAN PLATELET VOLUME 8.5 fl (7.4-10.4); MONOCYTES % 6.9 % (2.0-8.0); NEUTROPHILS % 63.9 % (40.0-76.0); PLATELET 198 x1000/uL (130-400); RED BLOOD CELL COUNT 4.24 mill/uL (4.7-6.1); RED CELL DISTRIBUTION WIDTH 15.7 % (11.6-14.6)
[2017-07-22 06:27] LABS: INR 1.1; PROTHROMBIN TIME 10.9 sec (9.4-11.6)
[2017-07-22 06:43] LABS: CARBON DIOXIDE 29 mEq/L (21-32); CHLORIDE 93 mEq/L (98-107)
[2017-07-22] MEDS ORDERED: INSULIN REGULAR (HUMULIN R) 300UNITS/3ML IV NR (07:30)
[2017-07-22] MEDS ORDERED: SODIUM CHLORIDE 0.9% 1,000 ML IV NR (07:40)
[2017-07-22 08:06] LABS: BETA HYDROXYBUTYRATE 0.6 mMol/L (0.0-0.3); CARBON DIOXIDE 29 mEq/L (21-32); CHLORIDE 98 mEq/L (98-107)
[2017-07-22] MEDS ORDERED: KETOROLAC 30MG/ML VIAL IV NR (08:30)
[2017-07-22] MEDS ORDERED: SODIUM CHLORIDE 0.9% 1,000 ML IV SCH (08:46)
[2017-07-22] MEDS ORDERED: MORPHINE SULFATE 4 MG/ML CPJ (NOT FOR IM USE) IV NR (09:56)
[2017-07-22] MEDS ORDERED: ONDANSETRON HCL 4MG/2ML VIAL IV NR (10:02)
[2017-07-22] MEDS ORDERED: ONDANSETRON HCL 4MG/2ML VIAL IV PRN (11:30)
[2017-07-22] MEDS ORDERED: CLONIDINE 0.1MG TABLET PO PRN (11:30)
[2017-07-22] MEDS ORDERED: MAGNESIUM/ALUMINUM HYDROXIDE/SIMETHICONE 30ML UDC PO PRN (11:30)
[2017-07-22 11:50] VITALS: BP 104/53
[2017-07-22 12:00] VITALS: BP 97/61
[2017-07-22] MEDS ORDERED: DEXTROSE 50% WATER 50ML SYRINGE IV PRN (12:30)
[2017-07-22] MEDS: BLOOD SUGAR DIAGNOSTIC STRIP TEST SCH ×3 (12:38→21:00)
[2017-07-22] MEDS: SODIUM CHLORIDE 0.9% 1,000 ML IV SCH (13:12)
[2017-07-22] MEDS: INSULIN LISPRO 100 UNITS/ML SUBCUT SCH ×3 (13:15→22:23)
[2017-07-22] MEDS: HYDROCODONE/ACETAMINOPHEN 5/325MG TABLET PO PRN ×3 (14:29→22:27)
[2017-07-22 15:29] LABS: CARBON DIOXIDE 23 mEq/L (21-32); CHLORIDE 101 mEq/L (98-107)
[2017-07-22 15:47] LABS: *AMPHETAMINES SCREEN URINE NEGATIVE (NEGATIVE); *BARBITURATES SCREEN URINE NEGATIVE (NEGATIVE); *BENZODIAZEPINES SCREEN URINE NEGATIVE (NEGATIVE); *COCAINE SCREEN URINE NEGATIVE (NEGATIVE); CANNABINOID URINE SCREEN NEGATIVE (NEGATIVE); METHADONE URINE SCREEN NEGATIVE (NEGATIVE); OPIATES URINE SCREEN NEGATIVE (NEGATIVE); PHENCYCLIDINE URINE SCREEN NEGATIVE (NEGATIVE)
[2017-07-22 16:00] VITALS: BP 104/69
[2017-07-22] MEDS ORDERED: BLOOD SUGAR DIAGNOSTIC STRIP TEST SCH (16:45)
[2017-07-22] MEDS ORDERED: INSULIN LISPRO 100 UNITS/ML SUBCUT SCH (17:15)
[2017-07-22] MEDS ORDERED: MAGNESIUM 2 G PREMIX 50 ML IV NR (18:00)
[2017-07-22 20:00] VITALS: BP 102/59
[2017-07-23] VITALS: BP 98/59
[2017-07-23] MEDS: IPRATROPIUM/ALBUTEROL 0.5-3(2.5)MG/3ML NEB INH SCH ×4 (02:11→21:25)
[2017-07-23 04:00] VITALS: BP 93/52
[2017-07-23] MEDS: BLOOD SUGAR DIAGNOSTIC STRIP TEST SCH ×4 (06:20→20:35)
[2017-07-23] MEDS: INSULIN LISPRO 100 UNITS/ML SUBCUT SCH ×4 (07:02→20:57)
[2017-07-23 07:03] LABS: BASOPHILS % 0.9 % (0.0-2.0); EOSINOPHILS % 6.5 % (0.0-5.0); HEMATOCRIT. 32.3 % (42.0-52.0); HEMOGLOBIN. 11.2 g/dL (14.0-18.0); MEAN CORPUSCULAR VOLUME 86.9 fL (80.0-94.0); MEAN PLATELET VOLUME 8.9 fl (7.4-10.4); MONOCYTES % 7.7 % (2.0-8.0); NEUTROPHILS % 55.9 % (40.0-76.0); PLATELET 184 x1000/uL (130-400); RED BLOOD CELL COUNT 3.72 mill/uL (4.7-6.1); RED CELL DISTRIBUTION WIDTH 15.1 % (11.6-14.6)
[2017-07-23 08:00] VITALS: BP 103/55
[2017-07-23] MEDS: HYDROCODONE/ACETAMINOPHEN 5/325MG TABLET PO PRN ×3 (08:40→22:03)
[2017-07-23 09:51] LABS: AMYLASE 29 IU/L (25-115)
[2017-07-23 12:08] VITALS: BP 85/40
[2017-07-23] MEDS: SODIUM CHLORIDE 0.9% 1,000 ML IV SCH (13:54)
[2017-07-23 16:00] VITALS: BP 97/63
[2017-07-23 20:00] VITALS: BP 103/51
[2017-07-24] VITALS: BP 105/68
[2017-07-24] MEDS: IPRATROPIUM/ALBUTEROL 0.5-3(2.5)MG/3ML NEB INH SCH ×2 (02:35→09:00)
[2017-07-24 04:00] VITALS: BP 99/50
[2017-07-24] MEDS: SODIUM CHLORIDE 0.9% 1,000 ML IV SCH (04:41)
[2017-07-24] MEDS: BLOOD SUGAR DIAGNOSTIC STRIP TEST SCH ×2 (06:39→11:45)
[2017-07-24] MEDS: INSULIN LISPRO 100 UNITS/ML SUBCUT SCH ×2 (07:07→13:11)
[2017-07-24 08:00] VITALS: BP 91/51
[2017-07-24 08:16] LABS: ALPHA FETOPROTEIN TUMOR MARKER < 0.7 ng/mL (0.0-8.3); CA 19-9 8 U/mL (0-35)
[2017-07-24 12:58] VITALS: BP 105/57
== END 2017-07-24 13:30 | disposition home or self-care (01) | DRG 243 ==
LOC: ER 21:28 → 5WST 07-22 08:55 → EDBEDREQSVC 07-22 10:25 → ENRESERV 07-22 10:36
PROVIDERS: ADMIT Internal Medicine; ATTEND Internal Medicine
DX: K21.9 Gastro-esophageal reflux disease without esophagitis (principal); K31.84 Gastroparesis; K86.3 Pseudocyst of pancreas; K85.90 Acute pancreatitis without necrosis or infection, unspecified; E11.43 Type 2 diabetes mellitus with diabetic autonomic (poly)neuropathy; F20.9 Schizophrenia, unspecified; E78.1 Pure hyperglyceridemia; J45.909 Unspecified asthma, uncomplicated; K86.1 Other chronic pancreatitis; Z79.4 Long term (current) use of insulin; Z79.899 Other long term (current) drug therapy; Z88.1 Allergy status to other antibiotic agents
CPT/HCPCS: 36415; 74018; 76700; 80048; 80053; 80061; 80305; 81001; 82010; 82105; 82150; 82962; 83690; 83735; 85025; 85610; 86301; 94640; 96361; 96374; 96375; 96376; 99285; J1815; J1885; J2270; J2405; J3475; J3490; J7030; J7620

== ENCOUNTER 2017-08-05 16:12 | Inpatient (IN) | payer MEDICAID ==
[~2017-08-05] VITALS: Ht 172.7 cm; Wt 85.7 kg
[2017-08-05] MEDS ORDERED: SODIUM CHLORIDE 0.9% 1,000 ML IV ONE ×2 (16:50→17:58)
[2017-08-05] MEDS ORDERED: ONDANSETRON HCL 4MG/2ML VIAL IV ONE (17:00)
[2017-08-05] MEDS ORDERED: PANTOPRAZOLE 40MG DR TABLET PO ONE (17:00)
[2017-08-05 17:33] LABS: CHLORIDE 86 mEq/L (98-107)
[2017-08-05 17:42] LABS: CARBON DIOXIDE 28 mEq/L (21-32); CLARITY URINE CLEAR (CLEAR); COLOR URINE YELLOW (YELLOW); KETONES URINE 1+ (NEGATIVE); LEUKOCYTE ESTERASE URINE NEGATIVE (NEGATIVE); NITRITE URINE NEGATIVE (NEGATIVE); OCCULT BLOOD URINE NEGATIVE (NEGATIVE); PH URINE 6.5 (4.5-8.0); PROTEIN URINE NEGATIVE (NEGATIVE); SPECIFIC GRAVITY URINE 1.034 (1.005-1.030); UROBILINOGEN URINE 0.2 E.U./dL (0.2-1.0)
[2017-08-05 17:49] LABS: HEMATOCRIT. 29.7 % (42.0-52.0); HEMOGLOBIN. 10.2 g/dL (14.0-18.0); MEAN PLATELET VOLUME 8.1 fl (7.4-10.4); PLATELET 257 x1000/uL (130-400); RED BLOOD CELL COUNT 3.53 mill/uL (4.7-6.1); RED CELL DISTRIBUTION WIDTH 15.9 % (11.6-14.6)
[2017-08-05] MEDS ORDERED: INSULIN REGULAR (HUMULIN R) UD 100 UNITS/ML SYR IV ONE (18:00)
[2017-08-05 18:03] LABS: PLATELET ESTIMATE NORMAL
[2017-08-05 18:07] LABS: PROTHROMBIN TIME 10.2 sec (9.4-11.6)
[2017-08-05] MEDS ORDERED: INSULIN REGULAR (HUMULIN R) 300UNITS/3ML IV NR (18:35)
[2017-08-05] MEDS ORDERED: DIPHENHYDRAMINE 50MG/ML VIAL IV PRN (19:00)
[2017-08-05] MEDS ORDERED: NA PHOS,M-B/NA PHOS,DI-BA ENEMA 118ML PR PRN (19:00)
[2017-08-05] MEDS ORDERED: ONDANSETRON HCL 4MG/2ML VIAL IV PRN (19:00)
[2017-08-05] MEDS ORDERED: ZOLPIDEM TARTRATE 5MG TABLET PO PRN ×2 (19:00→22:45)
[2017-08-05] MEDS ORDERED: IPRATROPIUM/ALBUTEROL 0.5-3(2.5)MG/3ML NEB INH PRN (19:00)
[2017-08-05] MEDS ORDERED: MAGNESIUM/ALUMINUM HYDROXIDE/SIMETHICONE 30ML UDC PO PRN (19:00)
[2017-08-05] MEDS ORDERED: ACETAMINOPHEN 325MG TABLET PO PRN (19:00)
[2017-08-05] MEDS ORDERED: KETOROLAC 15MG/ML VIAL IV PRN (19:00)
[2017-08-05] MEDS ORDERED: CLONIDINE 0.1MG TABLET PO PRN (19:00)
[2017-08-05] MEDS ORDERED: DEXTROSE 50% WATER 50ML SYRINGE IV PRN (19:00)
[2017-08-05] MEDS ORDERED: NITROGLYCERIN 0.4MG TABLET SL SL PRN (19:00)
[2017-08-05] MEDS ORDERED: LORAZEPAM 0.5MG TABLET PO PRN (19:00)
[2017-08-05] MEDS ORDERED: DOCUSATE SODIUM 100MG CAPSULE PO PRN (19:00)
[2017-08-05] MEDS: SODIUM CHLORIDE 0.9% 1,000 ML IV SCH (19:29)
[2017-08-05 20:19] LABS: *AMPHETAMINES SCREEN URINE NEGATIVE (NEGATIVE); *BARBITURATES SCREEN URINE NEGATIVE (NEGATIVE); *BENZODIAZEPINES SCREEN URINE NEGATIVE (NEGATIVE); *COCAINE SCREEN URINE NEGATIVE (NEGATIVE); CANNABINOID URINE SCREEN NEGATIVE (NEGATIVE); METHADONE URINE SCREEN NEGATIVE (NEGATIVE); OPIATES URINE SCREEN NEGATIVE (NEGATIVE); PHENCYCLIDINE URINE SCREEN NEGATIVE (NEGATIVE)
[2017-08-05] MEDS ORDERED: BLOOD SUGAR DIAGNOSTIC STRIP TEST SCH (21:00)
[2017-08-05] MEDS ORDERED: INSULIN LISPRO 100 UNITS/ML SUBCUT SCH (21:00)
[2017-08-05] MEDS ORDERED: FAMOTIDINE 20MG/2ML VIAL IV SCH (21:00)
[2017-08-05] MEDS ORDERED: INSULIN GLARGINE UD 100 UNITS/ML SYR SUBCUT SCH (22:00)
[2017-08-05 23:00] VITALS: BP 105/58
[2017-08-06] VITALS: BP 98/56
[2017-08-06] MEDS ORDERED: INSULIN GLARGINE UD 100 UNITS/ML SYR SUBCUT NR (01:30)
[2017-08-06 04:00] VITALS: BP 103/57
[2017-08-06] MEDS: INSULIN LISPRO 100 UNITS/ML SUBCUT SCH ×2 (07:45→12:23)
[2017-08-06] MEDS: BLOOD SUGAR DIAGNOSTIC STRIP TEST SCH ×2 (07:46→12:08)
[2017-08-06] MEDS ORDERED: INSULIN LISPRO 100 UNITS/ML SUBCUT SCH ×2 (07:50)
[2017-08-06 08:00] VITALS: BP 105/61
[2017-08-06] MEDS ORDERED: FAMOTIDINE 20MG/2ML VIAL IV SCH (09:00)
[2017-08-06] MEDS: SODIUM CHLORIDE 0.9% 1,000 ML IV SCH (09:38)
[2017-08-06 11:39] VITALS: BP 105/61
[2017-08-06 12:00] VITALS: BP 107/66
[2017-08-06] MEDS ORDERED: INSULIN GLARGINE UD 100 UNITS/ML SYR SUBCUT SCH (22:00)
== END 2017-08-06 12:30 | disposition home or self-care (01) | DRG 251 ==
LOC: ER 16:17 → EDBEDREQSVC 20:27 → EDBEDREQTM 20:27 → 6EST 20:27 → ENRESERV 21:10 → ER 22:34
PROVIDERS: ADMIT Internal Medicine; ATTEND Internal Medicine
DX: R10.9 Unspecified abdominal pain (principal); E11.65 Type 2 diabetes mellitus with hyperglycemia; F20.9 Schizophrenia, unspecified; E87.1 Hypo-osmolality and hyponatremia; J45.909 Unspecified asthma, uncomplicated; Z79.4 Long term (current) use of insulin; Z91.14 Patient's other noncompliance with medication regimen; Z88.8 Allergy status to other drugs, medicaments and biological substances; Z79.899 Other long term (current) drug therapy
CPT/HCPCS: 36415; 80053; 80305; 81001; 82962; 83690; 85025; 85610; 96361; 96374; 96375; 99285; J1815; J1885; J2405; J3490; J7030

== ENCOUNTER 2017-10-18 22:03 | Emergency (ER) | payer MEDICAID ==
[~2017-10-18] VITALS: Ht 167.6 cm; Wt 68.0 kg
[~2017-10-18 22:03] MED LIST changes: -ALBUTEROL INHALER; +ALBUTEROL INHALER INH; -BENZ1TAB7 GT; +BENZ1TAB7 PO; -LISI2.5T47 PO; +OMEP20CA10 PO
[2017-10-19] MEDS ORDERED: ONDANSETRON HCL 4MG/2ML VIAL IV ONE ×2 (02:45→06:00)
[2017-10-19] MEDS ORDERED: KETOROLAC 30MG/ML VIAL IV ONE (02:45)
[2017-10-19] MEDS ORDERED: SODIUM CHLORIDE 0.9% 1,000 ML IV ONE (03:00)
[2017-10-19 03:08] LABS: CLARITY URINE CLEAR (CLEAR); COLOR URINE YELLOW (YELLOW); KETONES URINE NEGATIVE (NEGATIVE); LEUKOCYTE ESTERASE URINE NEGATIVE (NEGATIVE); NITRITE URINE NEGATIVE (NEGATIVE); OCCULT BLOOD URINE NEGATIVE (NEGATIVE); PROTEIN URINE NEGATIVE (NEGATIVE); SPECIFIC GRAVITY URINE 1.014 (1.005-1.030); UROBILINOGEN URINE 0.2 E.U./dL (0.2-1.0)
[2017-10-19 03:16] LABS: BASOPHILS % 1.1 % (0.0-2.0); EOSINOPHILS % 3.9 % (0.0-5.0); HEMOGLOBIN. 12.2 g/dL (14.0-18.0); LYMPHOCYTES % 38.1 % (20.0-50.0); MEAN CORPUSCULAR HEMOGLOBIN 25.5 pg (28.0-32.0); MEAN PLATELET VOLUME 8.5 fl (7.4-10.4); MONOCYTES % 7.2 % (2.0-8.0); NEUTROPHILS % 49.7 % (40.0-76.0); PLATELET 189 x1000/uL (130-400); RED CELL DISTRIBUTION WIDTH 17.3 % (11.6-14.6)
[2017-10-19 03:28] LABS: CHLORIDE 91 mEq/L (98-107)
[2017-10-19] MEDS ORDERED: MORPHINE SULFATE 4 MG/ML CPJ (NOT FOR IM USE) IV ONE (06:00)
[2017-10-19 06:44] VITALS: BP 104/60
== END 2017-10-19 07:10 | disposition home or self-care (01) ==
LOC: ER 22:03
DX: K85.90 Acute pancreatitis without necrosis or infection, unspecified (principal); E11.9 Type 2 diabetes mellitus without complications; K76.0 Fatty (change of) liver, not elsewhere classified; J45.909 Unspecified asthma, uncomplicated; Z79.4 Long term (current) use of insulin; Z86.59 Personal history of other mental and behavioral disorders
CPT/HCPCS: 36415; 76705; 80053; 81003; 82962; 83690; 85025; 96361; 96374; 96375; 96376; 99285; J1885; J2270; J2405; J7030; Z7610

== ENCOUNTER 2017-10-21 21:05 | Emergency (ER) | payer MEDICAID ==
[~2017-10-21] VITALS: Ht 167.6 cm; Wt 81.0 kg
[2017-10-21] MEDS ORDERED: KETOROLAC 30MG/ML VIAL IV ONE (22:30)
[2017-10-21] MEDS ORDERED: SODIUM CHLORIDE 0.9% 1,000 ML IV ONE (22:31)
[2017-10-21] MEDS ORDERED: METOCLOPRAMIDE HCL 10MG/2ML VIAL IV ONE (22:45)
[2017-10-21 23:07] LABS: BASOPHILS % 0.7 % (0.0-2.0); EOSINOPHILS % 4.8 % (0.0-5.0); HEMATOCRIT. 30.3 % (42.0-52.0); HEMOGLOBIN. 10.4 g/dL (14.0-18.0); LYMPHOCYTES % 25.2 % (20.0-50.0); MEAN CORPUSCULAR HEMOGLOBIN 25.5 pg (28.0-32.0); MEAN CORPUSCULAR VOLUME 74.2 fL (80.0-94.0); MEAN PLATELET VOLUME 8.5 fl (7.4-10.4); MONOCYTES % 6.9 % (2.0-8.0); NEUTROPHILS % 62.4 % (40.0-76.0); PLATELET 173 x1000/uL (130-400); RED BLOOD CELL COUNT 4.08 mill/uL (4.7-6.1); RED CELL DISTRIBUTION WIDTH 16.9 % (11.6-14.6)
[2017-10-21 23:14] LABS: CHLORIDE 100 mEq/L (98-107)
[2017-10-21 23:17] LABS: INR 1.1; PROTHROMBIN TIME 10.9 sec (9.4-11.6)
[2017-10-21 23:23] LABS: BETA HYDROXYBUTYRATE 0.7 mMol/L (0.0-0.3)
[2017-10-21 23:29] LABS: CLARITY URINE CLEAR (CLEAR); COLOR URINE YELLOW (YELLOW); KETONES URINE TRACE (NEGATIVE); LEUKOCYTE ESTERASE URINE NEGATIVE (NEGATIVE); NITRITE URINE NEGATIVE (NEGATIVE); OCCULT BLOOD URINE NEGATIVE (NEGATIVE); PH URINE 5.5 (4.5-8.0); PROTEIN URINE NEGATIVE (NEGATIVE); SPECIFIC GRAVITY URINE 1.041 (1.005-1.030); UROBILINOGEN URINE 0.2 E.U./dL (0.2-1.0)
[2017-10-22] MEDS ORDERED: SODIUM CHLORIDE 0.9% 1,000 ML IV ONE
[2017-10-22] MEDS ORDERED: HALOPERIDOL LACTATE 5MG/ML VIAL IM ONE (00:15)
[2017-10-22 02:19] VITALS: BP 107/65
== END 2017-10-22 02:25 | disposition home or self-care (01) ==
LOC: ER 21:11 → CANBEDREQ 10-22 04:53
DX: R10.11 Right upper quadrant pain (principal); G89.29 Other chronic pain; E11.9 Type 2 diabetes mellitus without complications; J45.909 Unspecified asthma, uncomplicated; Z79.4 Long term (current) use of insulin; Z88.6 Allergy status to analgesic agent
CPT/HCPCS: 36415; 71045; 80053; 81003; 82010; 82962; 83605; 83690; 83735; 85025; 85610; 87040; 87086; 96361; 96374; 96375; 99285; J1630; J1885; J2765; J7030; Z7610

== ENCOUNTER 2017-11-01 20:39 | Emergency (ER) | payer MEDICAID ==
[~2017-11-01] VITALS: Ht 172.7 cm; Wt 75.0 kg
[~2017-11-01 20:39] MED LIST changes: -FOLI-43 PO; -GEMF600T PO; -LEVVL SUBCUT; -METF10002 PO; -MULT-348 PO; -OMEP20CA10 PO
[2017-11-01] MEDS ORDERED: SODIUM CHLORIDE 0.9% 1,000 ML IV ONE ×2 (22:11→23:00)
[2017-11-01] MEDS ORDERED: ONDANSETRON HCL 4MG/2ML VIAL IV STA (22:11)
[2017-11-01] MEDS ORDERED: MORPHINE SULFATE 4 MG/ML CPJ (NOT FOR IM USE) IV STA (22:11)
[2017-11-01 22:36] LABS: BASOPHILS % 0.8 % (0.0-2.0); EOSINOPHILS % 4.4 % (0.0-5.0); HEMATOCRIT. 34.2 % (42.0-52.0); HEMOGLOBIN. 11.3 g/dL (14.0-18.0); LYMPHOCYTES % 28.8 % (20.0-50.0); MEAN CORPUSCULAR HEMOGLOBIN 25.2 pg (28.0-32.0); MEAN CORPUSCULAR VOLUME 76.7 fL (80.0-94.0); MEAN PLATELET VOLUME 8.4 fl (7.4-10.4); MONOCYTES % 8.9 % (2.0-8.0); NEUTROPHILS % 57.1 % (40.0-76.0); PLATELET 134 x1000/uL (130-400); RED BLOOD CELL COUNT 4.46 mill/uL (4.7-6.1); RED CELL DISTRIBUTION WIDTH 18.3 % (11.6-14.6)
[2017-11-01 22:40] LABS: CHLORIDE 92 mEq/L (98-107)
[2017-11-01 23:12] LABS: CLARITY URINE CLEAR (CLEAR); COLOR URINE YELLOW (YELLOW); KETONES URINE NEGATIVE (NEGATIVE); LEUKOCYTE ESTERASE URINE NEGATIVE (NEGATIVE); NITRITE URINE NEGATIVE (NEGATIVE); OCCULT BLOOD URINE NEGATIVE (NEGATIVE); PH URINE 6.5 (4.5-8.0); PROTEIN URINE NEGATIVE (NEGATIVE); SPECIFIC GRAVITY URINE 1.035 (1.005-1.030); UROBILINOGEN URINE 0.2 E.U./dL (0.2-1.0)
[2017-11-02] MEDS ORDERED: KETOROLAC 15MG/ML VIAL IV ONE (01:30)
[2017-11-02 03:00] VITALS: BP 115/69
== END 2017-11-02 03:11 | disposition home or self-care (01) ==
LOC: ER 20:39
DX: E11.65 Type 2 diabetes mellitus with hyperglycemia (principal); R10.11 Right upper quadrant pain; Z79.4 Long term (current) use of insulin; Z91.14 Patient's other noncompliance with medication regimen; Z87.19 Personal history of other diseases of the digestive system
CPT/HCPCS: 36415; 80053; 81003; 82010; 82962; 83690; 85025; 96361; 96374; 96375; 99285; J1885; J2270; J2405; J7030; Z7610

== ENCOUNTER 2017-12-02 18:42 | Emergency (ER) | payer MEDICAID ==
[~2017-12-02] VITALS: Ht 172.7 cm; Wt 75.0 kg
[2017-12-02 18:46] VITALS: BP 116/75
== END 2017-12-03 01:09 | disposition left against medical advice (07) ==
LOC: ER 19:05
DX: R10.9 Unspecified abdominal pain (principal); Z53.21 Procedure and treatment not carried out due to patient leaving prior to being seen by health care provider

== ENCOUNTER 2017-12-30 20:58 | Emergency (ER) | payer MEDICAID ==
[~2017-12-30] VITALS: Ht 172.7 cm; Wt 82.0 kg
[2017-12-30] MEDS ORDERED: SODIUM CHLORIDE 0.9% 1,000 ML IV ONE ×2 (23:02)
[2017-12-30] MEDS ORDERED: INSULIN REGULAR (HUMULIN R) 300UNITS/3ML SUBCUT ONE (23:15)
[2017-12-30 23:23] LABS: BG CARBOXYHEMOGLOBIN 0.7 % (0.5-1.5); BG DEOXYHEMOGLOBIN 2.9 % (0.0-5.0); BG FRACTION INSPIRED OXYGEN 21; BG HCO3 ACT 21.7 mmol/L (22.0-26.0); BG OXYGEN SATURATION 97.1 % (92.0-98.5); BG OXYHEMOGLOBIN 96.4 % (94.0-97.0); BG PCO2 37.3 mmHg (35.0-45.0); BG PH 7.383 (7.350-7.450); BG PO2 100.8 mmHg (75.0-100.0); BG SAMPLE SITE RIGHT RADIAL; BG TOTAL HEMOGLOBIN 10.6 g/dL (12.0-18.0); BG VENT MODE ROOM AIR
[2017-12-30] MEDS ORDERED: KETOROLAC 30MG/ML VIAL IV ONE (23:30)
[2017-12-30 23:31] LABS: BASOPHILS % 0.8 % (0.0-2.0); EOSINOPHILS % 1.8 % (0.0-5.0); HEMATOCRIT. 30.3 % (42.0-52.0); HEMOGLOBIN. 10.7 g/dL (14.0-18.0); LYMPHOCYTES % 25.6 % (20.0-50.0); MEAN CORPUSCULAR HEMOGLOBIN 26.1 pg (28.0-32.0); MEAN CORPUSCULAR VOLUME 73.8 fL (80.0-94.0); MEAN PLATELET VOLUME 8.6 fl (7.4-10.4); MONOCYTES % 7.5 % (2.0-8.0); NEUTROPHILS % 64.3 % (40.0-76.0); PLATELET 160 x1000/uL (130-400); RED BLOOD CELL COUNT 4.11 mill/uL (4.7-6.1); RED CELL DISTRIBUTION WIDTH 16.2 % (11.6-14.6)
[2017-12-30 23:45] LABS: CHLORIDE 90 mEq/L (98-107)
[2017-12-31] LABS: BETA HYDROXYBUTYRATE 2.2 mMol/L (0.0-0.3); ETHANOL BLOOD < 10 mg/dL
[2017-12-31] MEDS ORDERED: SODIUM CHLORIDE 0.9% 1,000 ML IV ONE (01:04)
[2017-12-31 02:10] LABS: CLARITY URINE CLEAR (CLEAR); COLOR URINE YELLOW (YELLOW); KETONES URINE 2+ (NEGATIVE); LEUKOCYTE ESTERASE URINE NEGATIVE (NEGATIVE); NITRITE URINE NEGATIVE (NEGATIVE); OCCULT BLOOD URINE NEGATIVE (NEGATIVE); PROTEIN URINE NEGATIVE (NEGATIVE); UROBILINOGEN URINE 0.2 E.U./dL (0.2-1.0)
[2017-12-31] MEDS ORDERED: KETOROLAC 15MG/ML VIAL IV ONE (02:15)
[2017-12-31] MEDS ORDERED: INSULIN REGULAR (HUMULIN R) 300UNITS/3ML SUBCUT ONE (02:15)
[2017-12-31 02:30] LABS: *AMPHETAMINES SCREEN URINE NEGATIVE (NEGATIVE); *BARBITURATES SCREEN URINE NEGATIVE (NEGATIVE); *BENZODIAZEPINES SCREEN URINE NEGATIVE (NEGATIVE); *COCAINE SCREEN URINE NEGATIVE (NEGATIVE); METHADONE URINE SCREEN NEGATIVE (NEGATIVE)
[2017-12-31 02:31] LABS: CANNABINOID URINE SCREEN NEGATIVE (NEGATIVE); OPIATES URINE SCREEN NEGATIVE (NEGATIVE); PHENCYCLIDINE URINE SCREEN NEGATIVE (NEGATIVE)
[2017-12-31 03:57] VITALS: BP 111/71
== END 2017-12-31 04:01 | disposition home or self-care (01) ==
LOC: ER 20:58
DX: R10.11 Right upper quadrant pain (principal); E11.65 Type 2 diabetes mellitus with hyperglycemia; F20.9 Schizophrenia, unspecified; Z88.6 Allergy status to analgesic agent; Z79.4 Long term (current) use of insulin
CPT/HCPCS: 36415; 36600; 71045; 80053; 80305; 81003; 82010; 82375; 82805; 82962; 83690; 85025; 96361; 96372; 96374; 99285; G0482; J1815; J1885; J7030; Z7610; J7040

== ENCOUNTER 2018-01-26 21:04 | Emergency (ER) | payer MEDICAID ==
[~2018-01-26] VITALS: Ht 177.8 cm; Wt 82.0 kg
[2018-01-26 21:05] VITALS: BP 105/65
== END 2018-01-26 21:46 | disposition left against medical advice (07) ==
LOC: ER 21:44
DX: R10.11 Right upper quadrant pain (principal); E11.65 Type 2 diabetes mellitus with hyperglycemia; Z53.21 Procedure and treatment not carried out due to patient leaving prior to being seen by health care provider
CPT/HCPCS: 82962

== ENCOUNTER 2018-04-11 20:42 | Emergency (ER) | payer MEDICAID ==
[~2018-04-11] VITALS: Ht 177.8 cm; Wt 81.0 kg
[2018-04-11] MEDS ORDERED: ONDANSETRON HCL 4MG/2ML INJ IV STA (23:49)
[2018-04-11] MEDS ORDERED: KETOROLAC 30MG/ML VIAL IV STA (23:49)
[2018-04-12 00:47] LABS: BASOPHILS % 0.7 % (0.0-2.0); HEMATOCRIT. 32.8 % (42.0-52.0); HEMOGLOBIN. 10.4 g/dL (14.0-18.0); LYMPHOCYTES % 27.5 % (20.0-50.0); MEAN CORPUSCULAR HEMOGLOBIN 23.3 pg (28.0-32.0); MEAN CORPUSCULAR VOLUME 73.2 fL (80.0-94.0); MEAN PLATELET VOLUME 9.5 fl (7.4-10.4); MONOCYTES % 5.9 % (2.0-8.0); NEUTROPHILS % 64.9 % (40.0-76.0); PLATELET 142 x1000/uL (130-400); RED BLOOD CELL COUNT 4.48 mill/uL (4.7-6.1); RED CELL DISTRIBUTION WIDTH 18.8 % (11.6-14.6)
[2018-04-12 01:07] LABS: CLARITY URINE CLEAR (CLEAR); COLOR URINE YELLOW (YELLOW); KETONES URINE NEGATIVE (NEGATIVE); LEUKOCYTE ESTERASE URINE NEGATIVE (NEGATIVE); NITRITE URINE NEGATIVE (NEGATIVE); OCCULT BLOOD URINE NEGATIVE (NEGATIVE); PH URINE 6.5 (4.5-8.0); PROTEIN URINE NEGATIVE (NEGATIVE); UROBILINOGEN URINE 0.2 E.U./dL (0.2-1.0)
[2018-04-12 01:23] LABS: *AMPHETAMINES SCREEN URINE NEGATIVE (NEGATIVE); *BARBITURATES SCREEN URINE NEGATIVE (NEGATIVE); *BENZODIAZEPINES SCREEN URINE NEGATIVE (NEGATIVE)
[2018-04-12 01:24] LABS: *COCAINE SCREEN URINE NEGATIVE (NEGATIVE); CANNABINOID URINE SCREEN NEGATIVE (NEGATIVE); METHADONE URINE SCREEN NEGATIVE (NEGATIVE); OPIATES URINE SCREEN NEGATIVE (NEGATIVE); PHENCYCLIDINE URINE SCREEN NEGATIVE (NEGATIVE)
[2018-04-12 02:20] VITALS: BP 96/77
[2018-04-12 03:21] LABS: CHLORIDE 93 mEq/L (98-107)
[2018-04-12 03:30] LABS: ETHANOL BLOOD < 10 mg/dL
[2018-04-12] MEDS ORDERED: SODIUM CHLORIDE 0.9% 1000ML BAG (SEPSIS BOLUS) IV ONE (04:45)
== END 2018-04-12 05:51 | disposition left against medical advice (07) ==
LOC: ER 20:58
DX: R16.2 Hepatomegaly with splenomegaly, not elsewhere classified (principal); E11.65 Type 2 diabetes mellitus with hyperglycemia; J45.909 Unspecified asthma, uncomplicated; F20.9 Schizophrenia, unspecified; Z88.5 Allergy status to narcotic agent; Z79.4 Long term (current) use of insulin; Z79.899 Other long term (current) drug therapy
CPT/HCPCS: 36415; 74176; 76700; 80053; 80305; 81003; 83605; 83690; 85025; 96374; 96375; 99285; G0482; J1885; J2405

== ENCOUNTER 2018-07-21 07:57 | Inpatient (IN) | payer MEDICAID ==
[2018-07-21] VITALS (13 sets, daily range): BP systolic 106–138; BP diastolic 63–100
[~2018-07-21] VITALS: Ht 167.6 cm; Wt 84.4 kg
[2018-07-21] MEDS ORDERED: SODIUM CHLORIDE 0.9% 1,000 ML IV ONE (08:56)
[2018-07-21] MEDS ORDERED: ONDANSETRON HCL 4MG/2ML INJ IV STA (08:56)
[2018-07-21] MEDS ORDERED: KETOROLAC 30MG/ML VIAL IV STA (08:56)
[2018-07-21 09:36] LABS: BASOPHILS % 0.5 % (0.0-2.0); CHLORIDE 84 mEq/L (98-107); EOSINOPHILS % 1.9 % (0.0-5.0); HEMATOCRIT. 43.2 % (42.0-52.0); HEMOGLOBIN. 13.8 g/dL (14.0-18.0); LYMPHOCYTES % 19.3 % (20.0-50.0); MEAN CORPUSCULAR HEMOGLOBIN 26.7 pg (28.0-32.0); MEAN CORPUSCULAR VOLUME 83.4 fL (80.0-94.0); MEAN PLATELET VOLUME 9.3 fl (7.4-10.4); MONOCYTES % 5.7 % (2.0-8.0); NEUTROPHILS % 72.6 % (40.0-76.0); PLATELET 131 x1000/uL (130-400); RED BLOOD CELL COUNT 5.17 mill/uL (4.7-6.1); RED CELL DISTRIBUTION WIDTH 18.1 % (11.6-14.6)
[2018-07-21 09:41] LABS: ETHANOL BLOOD < 10 mg/dL
[2018-07-21 09:55] LABS: CLARITY URINE CLEAR (CLEAR); COLOR URINE YELLOW (YELLOW); KETONES URINE 1+ (NEGATIVE); LEUKOCYTE ESTERASE URINE NEGATIVE (NEGATIVE); NITRITE URINE NEGATIVE (NEGATIVE); OCCULT BLOOD URINE NEGATIVE (NEGATIVE); PH URINE 5.5 (4.5-8.0); PROTEIN URINE NEGATIVE (NEGATIVE); SPECIFIC GRAVITY URINE 1.033 (1.005-1.030); UROBILINOGEN URINE 0.2 E.U./dL (0.2-1.0)
[2018-07-21] MEDS ORDERED: INSULIN REGULAR (DRIP) 100 UNITS in SODIUM CHLORIDE 0.9% 100 ML IV ONE (10:15)
[2018-07-21 10:16] LABS: *BENZODIAZEPINES SCREEN URINE NEGATIVE (NEGATIVE); *COCAINE SCREEN URINE NEGATIVE (NEGATIVE)
[2018-07-21 10:17] LABS: *AMPHETAMINES SCREEN URINE NEGATIVE (NEGATIVE); *BARBITURATES SCREEN URINE NEGATIVE (NEGATIVE); CANNABINOID URINE SCREEN NEGATIVE (NEGATIVE); METHADONE URINE SCREEN NEGATIVE (NEGATIVE); OPIATES URINE SCREEN NEGATIVE (NEGATIVE); PHENCYCLIDINE URINE SCREEN NEGATIVE (NEGATIVE)
[2018-07-21] MEDS ORDERED: INSULIN REGULAR (DRIP) 100 UNITS in SODIUM CHLORIDE 0.9% 99 ML IV ONE (10:30)
[2018-07-21] MEDS ORDERED: INSULIN REGULAR (DRIP) 100 UNITS in SODIUM CHLORIDE 0.9% 100 ML IV PRN (13:47)
[2018-07-21] MEDS: MORPHINE SULFATE 4 MG/ML CPJ (NOT FOR IM USE) IV PRN ×3 (13:56→23:10)
[2018-07-21] MEDS: SODIUM CHLORIDE 0.9% 1,000 ML IV SCH ×2 (13:57→21:18)
[2018-07-21] MEDS: BLOOD SUGAR DIAGNOSTIC STRIP TEST SCH ×5 (14:00→21:15)
[2018-07-21] MEDS ORDERED: DEXTROSE 50% WATER 50ML SYRINGE IV PRN ×3 (14:00→17:30)
[2018-07-21] MEDS: HALOPERIDOL 5MG TABLET PO SCH ×2 (14:59→21:13)
[2018-07-21] MEDS: BENZTROPINE MESYLATE 1MG TABLET PO SCH ×2 (14:59→21:18)
[2018-07-21] MEDS: INSULIN LISPRO 100 UNITS/ML SUBCUT SCH ×2 (18:07→21:17)
[2018-07-21 18:22] LABS: CHLORIDE 104 mEq/L (98-107)
[2018-07-21] MEDS ORDERED: POTASSIUM CHLORIDE 20MEQ TABLET SR PO NR (19:00)
[2018-07-21] MEDS ORDERED: INSULIN LISPRO 100 UNITS/ML SUBCUT SCH (19:00)
[2018-07-21] MEDS ORDERED: INSULIN GLARGINE UD 100 UNITS/ML SYR SUBCUT NR (20:00)
[2018-07-21 20:52] LABS: PHOSPHORUS 4.5 mg/dL (2.5-4.9)
[2018-07-22] VITALS (17 sets, daily range): BP systolic 96–122; BP diastolic 52–79
[2018-07-22] MEDS ORDERED: INSULIN LISPRO 100 UNITS/ML SUBCUT NR (00:15)
[2018-07-22] MEDS ORDERED: BLOOD SUGAR DIAGNOSTIC STRIP TEST SCH (03:00)
[2018-07-22] MEDS: MORPHINE SULFATE 4 MG/ML CPJ (NOT FOR IM USE) IV PRN ×4 (03:33→21:24)
[2018-07-22] MEDS: SODIUM CHLORIDE 0.9% 1,000 ML IV SCH (03:35)
[2018-07-22 05:38] LABS: HEMOGLOBIN. 12.3 g/dL (14.0-18.0); MEAN CORPUSCULAR HEMOGLOBIN 26.7 pg (28.0-32.0); MEAN CORPUSCULAR VOLUME 78.1 fL (80.0-94.0); PLATELET 127 x1000/uL (130-400); RED BLOOD CELL COUNT 4.61 mill/uL (4.7-6.1); RED CELL DISTRIBUTION WIDTH 18.9 % (11.6-14.6)
[2018-07-22 05:41] LABS: CHLORIDE 104 mEq/L (98-107)
[2018-07-22 05:47] LABS: PHOSPHORUS 4.6 mg/dL (2.5-4.9)
[2018-07-22 05:48] LABS: LDL CHOLESTEROL 60 mg/dL (5-100)
[2018-07-22 05:49] LABS: HDL CHOLESTEROL 26 mg/dL (40-59)
[2018-07-22] MEDS: BLOOD SUGAR DIAGNOSTIC STRIP TEST SCH ×4 (08:08→21:36)
[2018-07-22] MEDS: INSULIN LISPRO 100 UNITS/ML SUBCUT SCH ×7 (08:10→21:53)
[2018-07-22] MEDS: HALOPERIDOL 5MG TABLET PO SCH ×2 (08:11→21:23)
[2018-07-22] MEDS: BENZTROPINE MESYLATE 1MG TABLET PO SCH ×2 (08:11→21:23)
[2018-07-22] MEDS ORDERED: INSULIN GLARGINE UD 100 UNITS/ML SYR SUBCUT SCH (10:00)
[2018-07-22] MEDS: INSULIN GLARGINE UD 100 UNITS/ML SYR SUBCUT SCH (10:08)
[2018-07-22] MEDS ORDERED: PANTOPRAZOLE SODIUM 40 MG/VIAL IV SCH (14:00)
[2018-07-22 22:08] LABS: PLATELET ESTIMATE SLIGHTLY DECREASED
[2018-07-22] MEDS ORDERED: INSULIN GLARGINE UD 100 UNITS/ML SYR SUBCUT NR (23:59)
[2018-07-23] VITALS: BP 118/67
[2018-07-23] MEDS: MORPHINE SULFATE 4 MG/ML CPJ (NOT FOR IM USE) IV PRN ×2 (02:33→09:21)
[2018-07-23 04:00] VITALS: BP 107/68
[2018-07-23] MEDS: INSULIN LISPRO 100 UNITS/ML SUBCUT SCH ×4 (06:52→13:06)
[2018-07-23] MEDS: BLOOD SUGAR DIAGNOSTIC STRIP TEST SCH ×2 (06:53→11:52)
[2018-07-23 08:00] VITALS: BP 112/70
[2018-07-23] MEDS ORDERED: FENOFIBRATE NANOCRYSTALLIZED 145MG TABLET PO SCH (09:00)
[2018-07-23] MEDS ORDERED: PANTOPRAZOLE 40MG DR TABLET PO SCH (09:00)
[2018-07-23] MEDS: HALOPERIDOL 5MG TABLET PO SCH (09:20)
[2018-07-23] MEDS: INSULIN GLARGINE UD 100 UNITS/ML SYR SUBCUT SCH (09:29)
[2018-07-23 13:46] VITALS: BP 112/70
[2018-07-23] MEDS ORDERED: INSULIN LISPRO 100 UNITS/ML SUBCUT SCH (17:20)
[2018-07-23] MEDS ORDERED: INSULIN GLARGINE UD 100 UNITS/ML SYR SUBCUT SCH (22:00)
== END 2018-07-23 14:00 | disposition home or self-care (01) | DRG 420 ==
LOC: ER 08:21 → CVICU 10:15 → EDBEDREQ 10:20 → ENRESERV 11:38 → 6EST 07-23 01:27
PROVIDERS: ADMIT Internal Medicine; ATTEND Internal Medicine
DX: E11.00 Type 2 diabetes mellitus with hyperosmolarity without nonketotic hyperglycemic-hyperosmolar coma (NKHHC) (principal); K86.3 Pseudocyst of pancreas; E87.1 Hypo-osmolality and hyponatremia; B35.1 Tinea unguium; D72.819 Decreased white blood cell count, unspecified; E11.65 Type 2 diabetes mellitus with hyperglycemia; R10.9 Unspecified abdominal pain; F20.9 Schizophrenia, unspecified; D18.03 Hemangioma of intra-abdominal structures; E78.1 Pure hyperglyceridemia; E87.6 Hypokalemia; I10 Essential (primary) hypertension; J45.909 Unspecified asthma, uncomplicated; Z83.3 Family history of diabetes mellitus; Z88.6 Allergy status to analgesic agent; Z79.899 Other long term (current) drug therapy
CPT/HCPCS: 36415; 74176; 80048; 80061; 80305; 82533; 82962; 83036; 83735; 84100; 84443; 84681; 85007; 85027; 96374; 99285; G0482; J1630; J1815; J1885; J2270; J2405; J7030; J7050

== ENCOUNTER 2018-08-31 18:37 | Emergency (ER) | payer MEDICAID ==
[~2018-08-31] VITALS: Ht 170.2 cm; Wt 64.0 kg
[2018-08-31 18:43] VITALS: BP 118/70
== END 2018-08-31 19:50 | disposition left against medical advice (07) ==
LOC: ER 18:51
DX: Z53.21 Procedure and treatment not carried out due to patient leaving prior to being seen by health care provider (principal); Z88.6 Allergy status to analgesic agent

== ENCOUNTER 2019-02-22 11:56 | Emergency (ER) | payer MEDICAID ==
[~2019-02-22] VITALS: Ht 165.1 cm; Wt 65.0 kg
[2019-02-22] MEDS ORDERED: ONDANSETRON HCL 4MG/2ML INJ IV ONE (15:00)
[2019-02-22] MEDS ORDERED: SODIUM CHLORIDE 0.9% 1,000 ML IV ONE (15:00)
[2019-02-22] MEDS ORDERED: MORPHINE SULFATE 4 MG/ML CPJ (NOT FOR IM USE) IV ONE (15:00)
[2019-02-22 15:30] LABS: BASOPHILS % 0.4 % (0.0-2.0); EOSINOPHILS % 1.1 % (0.0-5.0); HEMATOCRIT. 46.5 % (42.0-52.0); HEMOGLOBIN. 16.2 g/dL (14.0-18.0); LYMPHOCYTES % 12.7 % (20.0-50.0); MEAN CORPUSCULAR HEMOGLOBIN 31.2 pg (28.0-32.0); MEAN CORPUSCULAR VOLUME 89.6 fL (80.0-94.0); MEAN PLATELET VOLUME 9.6 fl (7.4-10.4); MONOCYTES % 6.9 % (2.0-8.0); NEUTROPHILS % 78.9 % (40.0-76.0); PLATELET 181 x1000/uL (130-400); RED BLOOD CELL COUNT 5.19 mill/uL (4.7-6.1); RED CELL DISTRIBUTION WIDTH 13.3 % (11.6-14.6)
[2019-02-22 15:32] LABS: CLARITY URINE CLEAR (CLEAR); COLOR URINE YELLOW (YELLOW); KETONES URINE TRACE (NEGATIVE); LEUKOCYTE ESTERASE URINE NEGATIVE (NEGATIVE); NITRITE URINE NEGATIVE (NEGATIVE); OCCULT BLOOD URINE NEGATIVE (NEGATIVE); PH URINE 5.5 (4.5-8.0); PROTEIN URINE NEGATIVE (NEGATIVE); SPECIFIC GRAVITY URINE 1.038 (1.005-1.030); UROBILINOGEN URINE 0.2 E.U./dL (0.2-1.0)
[2019-02-22 15:38] LABS: CHLORIDE 93 mEq/L (98-107)
[2019-02-22] MEDS ORDERED: INSULIN REGULAR (HUMULIN R) 300UNITS/3ML IV NR (17:30)
[2019-02-22 19:26] VITALS: BP 130/78
== END 2019-02-22 19:31 | disposition home or self-care (01) ==
LOC: ER 11:56
DX: E11.65 Type 2 diabetes mellitus with hyperglycemia (principal); R10.9 Unspecified abdominal pain; J45.909 Unspecified asthma, uncomplicated; F20.9 Schizophrenia, unspecified; Z79.4 Long term (current) use of insulin; Z88.6 Allergy status to analgesic agent
CPT/HCPCS: 36415; 80053; 81003; 82962; 83690; 85025; 85610; 96361; 96374; 96375; 99283; J1815; J2270; J2405

== ENCOUNTER 2019-03-16 20:02 | Emergency (ER) | payer MEDICAID ==
[~2019-03-16] VITALS: Ht 177.8 cm; Wt 68.0 kg
[2019-03-16] MEDS ORDERED: SODIUM CHLORIDE 0.9% 1,000 ML IV ONE (23:27)
[2019-03-16] MEDS ORDERED: KETOROLAC 30MG/ML VIAL IV STA (23:27)
[2019-03-16] MEDS ORDERED: MORPHINE SULFATE 4 MG/ML CPJ (NOT FOR IM USE) IV STA (23:27)
[2019-03-16 23:53] LABS: BASOPHILS % 0.6 % (0.0-2.0); EOSINOPHILS % 3.8 % (0.0-5.0); HEMATOCRIT. 38.5 % (42.0-52.0); HEMOGLOBIN. 13.7 g/dL (14.0-18.0); LYMPHOCYTES % 28.4 % (20.0-50.0); MEAN CORPUSCULAR HEMOGLOBIN 30.7 pg (28.0-32.0); MEAN CORPUSCULAR VOLUME 86.2 fL (80.0-94.0); MEAN PLATELET VOLUME 9.1 fl (7.4-10.4); NEUTROPHILS % 58.2 % (40.0-76.0); PLATELET 139 x1000/uL (130-400); RED BLOOD CELL COUNT 4.46 mill/uL (4.7-6.1); RED CELL DISTRIBUTION WIDTH 12.5 % (11.6-14.6)
[2019-03-16 23:55] LABS: CLARITY URINE CLEAR (CLEAR); COLOR URINE YELLOW (YELLOW); KETONES URINE 2+ (NEGATIVE); LEUKOCYTE ESTERASE URINE NEGATIVE (NEGATIVE); NITRITE URINE NEGATIVE (NEGATIVE); OCCULT BLOOD URINE NEGATIVE (NEGATIVE); PH URINE 5.5 (4.5-8.0); PROTEIN URINE NEGATIVE (NEGATIVE); SPECIFIC GRAVITY URINE 1.041 (1.005-1.030); UROBILINOGEN URINE 0.2 E.U./dL (0.2-1.0)
[2019-03-16 23:58] LABS: PROTHROMBIN TIME 10.5 sec (9.6-11.0)
[2019-03-16 23:59] LABS: CHLORIDE 96 mEq/L (98-107)
[2019-03-17] MEDS ORDERED: SODIUM CHLORIDE 0.9% 1,000 ML IV ONE (00:45)
[2019-03-17] MEDS ORDERED: MAGNESIUM/ALUMINUM HYDROXIDE/SIMETHICONE 30ML UDC PO STA (02:12)
[2019-03-17] MEDS ORDERED: INSULIN REGULAR (HUMULIN R) 300UNITS/3ML IV NR (02:15)
[2019-03-17 02:54] VITALS: BP 118/76
== END 2019-03-17 03:20 | disposition home or self-care (01) ==
LOC: ER 20:02
DX: R10.11 Right upper quadrant pain (principal); E11.65 Type 2 diabetes mellitus with hyperglycemia; J45.909 Unspecified asthma, uncomplicated; F20.9 Schizophrenia, unspecified; Z79.4 Long term (current) use of insulin; Z79.899 Other long term (current) drug therapy; R11.2 Nausea with vomiting, unspecified
CPT/HCPCS: 36415; 74018; 76770; 80053; 81003; 82962; 83690; 85025; 85610; 96361; 96374; 96375; 99284; J1815; J1885; J2270; J7030

== ENCOUNTER 2019-05-05 06:04 | Inpatient (IN) | payer MEDICAID ==
[~2019-05-05] VITALS: Ht 172.7 cm; Wt 81.6 kg
[2019-05-05] MEDS: SODIUM CHLORIDE 0.9% 1,000 ML IV SCH ×2 (01:42→16:16)
[2019-05-05] MEDS ORDERED: KETOROLAC 30MG/ML VIAL IV STA (06:39)
[2019-05-05] MEDS ORDERED: SODIUM CHLORIDE 0.9% 1,000 ML IV ONE ×2 (06:39→07:30)
[2019-05-05] MEDS ORDERED: ONDANSETRON HCL 4MG/2ML INJ IV STA (06:39)
[2019-05-05 07:04] LABS: BASOPHILS % 0.9 % (0.0-2.0); EOSINOPHILS % 1.7 % (0.0-5.0); HEMATOCRIT. 40.9 % (42.0-52.0); HEMOGLOBIN. 13.9 g/dL (14.0-18.0); LYMPHOCYTES % 19.1 % (20.0-50.0); MEAN CORPUSCULAR HEMOGLOBIN 30.2 pg (28.0-32.0); MEAN CORPUSCULAR VOLUME 89.1 fL (80.0-94.0); MEAN PLATELET VOLUME 8.8 fl (7.4-10.4); MONOCYTES % 8.8 % (2.0-8.0); NEUTROPHILS % 69.5 % (40.0-76.0); PLATELET 200 x1000/uL (130-400); RED BLOOD CELL COUNT 4.59 mill/uL (4.7-6.1)
[2019-05-05 07:11] LABS: CHLORIDE 93 mEq/L (98-107)
[2019-05-05] MEDS ORDERED: INSULIN REGULAR (HUMULIN R) UD 100 UNITS/ML SYR IV ONE (07:30)
[2019-05-05] MEDS ORDERED: MORPHINE SULFATE 4 MG/ML CPJ (NOT FOR IM USE) IV ONE (07:45)
[2019-05-05] MEDS ORDERED: INSULIN REGULAR (HUMULIN R) 300UNITS/3ML IV SCH (08:17)
[2019-05-05 08:57] LABS: CLARITY URINE CLEAR (CLEAR); COLOR URINE YELLOW (YELLOW); KETONES URINE 1+ (NEGATIVE); LEUKOCYTE ESTERASE URINE NEGATIVE (NEGATIVE); NITRITE URINE NEGATIVE (NEGATIVE); OCCULT BLOOD URINE NEGATIVE (NEGATIVE); PROTEIN URINE NEGATIVE (NEGATIVE); SPECIFIC GRAVITY URINE 1.039 (1.005-1.030); UROBILINOGEN URINE 0.2 E.U./dL (0.2-1.0)
[2019-05-05 09:47] LABS: *BARBITURATES SCREEN URINE NEGATIVE (NEGATIVE)
[2019-05-05 09:48] LABS: *BENZODIAZEPINES SCREEN URINE NEGATIVE (NEGATIVE); *COCAINE SCREEN URINE NEGATIVE (NEGATIVE); METHADONE URINE SCREEN NEGATIVE (NEGATIVE)
[2019-05-05 09:49] LABS: *AMPHETAMINES SCREEN URINE NEGATIVE (NEGATIVE); PHENCYCLIDINE URINE SCREEN NEGATIVE (NEGATIVE)
[2019-05-05 09:50] LABS: CANNABINOID URINE SCREEN NEGATIVE (NEGATIVE); OPIATES URINE SCREEN NEGATIVE (NEGATIVE)
[2019-05-05 12:00] VITALS: BP 130/88
[2019-05-05] MEDS ORDERED: SODIUM CHLORIDE 0.9% 1,000 ML IV SCH (12:17)
[2019-05-05] MEDS ORDERED: DIPHENHYDRAMINE 50MG/ML VIAL IV PRN (12:30)
[2019-05-05] MEDS ORDERED: KETOROLAC 30MG/ML VIAL IV PRN (12:30)
[2019-05-05] MEDS ORDERED: MAGNESIUM/ALUMINUM HYDROXIDE/SIMETHICONE 30ML UDC PO PRN (12:30)
[2019-05-05] MEDS ORDERED: ONDANSETRON HCL 4MG/2ML INJ IV PRN (12:30)
[2019-05-05] MEDS ORDERED: DEXTROSE 50% WATER 50ML SYRINGE IV PRN (12:30)
[2019-05-05] MEDS ORDERED: LORAZEPAM 2MG/ML CPJ IV PRN (12:30)
[2019-05-05] MEDS ORDERED: ACETAMINOPHEN 325MG TABLET PO PRN (12:30)
[2019-05-05 12:31] VITALS: BP 122/86
[2019-05-05] MEDS: MORPHINE SULFATE 2 MG/ML CPJ (NOT FOR IM USE) IV PRN ×3 (12:52→22:30)
[2019-05-05] MEDS ORDERED: BLOOD SUGAR DIAGNOSTIC STRIP TEST SCH (13:00)
[2019-05-05] MEDS ORDERED: INSULIN LISPRO 100 UNITS/ML SUBCUT SCH ×2 (13:00→14:00)
[2019-05-05] MEDS ORDERED: HALOPERIDOL 5MG TABLET PO SCH (14:15)
[2019-05-05] MEDS: HALOPERIDOL 5MG TABLET PO SCH ×2 (14:15→21:44)
[2019-05-05] MEDS ORDERED: INSULIN GLARGINE UD 100 UNITS/ML SYR SUBCUT SCH (15:30)
[2019-05-05 16:00] VITALS: BP 126/86
[2019-05-05] MEDS: BLOOD SUGAR DIAGNOSTIC STRIP TEST SCH (18:13)
[2019-05-05] MEDS: INSULIN LISPRO 100 UNITS/ML SUBCUT SCH (18:36)
[2019-05-05 20:00] VITALS: BP 126/80
[2019-05-05] MEDS: FAMOTIDINE 20MG/2ML VIAL IV SCH (20:41)
[2019-05-05] MEDS: BENZTROPINE MESYLATE 1MG TABLET PO SCH (21:44)
[2019-05-05] MEDS: INSULIN GLARGINE UD 100 UNITS/ML SYR SUBCUT SCH (22:00)
[2019-05-06] VITALS: BP 128/83
[2019-05-06] MEDS ORDERED: INSULIN LISPRO 100 UNITS/ML SUBCUT SCH
[2019-05-06] MEDS: INSULIN LISPRO 100 UNITS/ML SUBCUT SCH ×4 (01:41→17:52)
[2019-05-06] MEDS: MORPHINE SULFATE 2 MG/ML CPJ (NOT FOR IM USE) IV PRN ×4 (03:53→16:57)
[2019-05-06 04:00] VITALS: BP_SYST 101; BP_DIAS 47; BP_DIAS 65
[2019-05-06] MEDS: BLOOD SUGAR DIAGNOSTIC STRIP TEST SCH ×4 (05:39→17:50)
[2019-05-06 07:20] LABS: BASOPHILS % 0.4 % (0.0-2.0); HEMATOCRIT. 38.1 % (42.0-52.0); HEMOGLOBIN. 13.5 g/dL (14.0-18.0); LYMPHOCYTES % 27.6 % (20.0-50.0); MEAN CORPUSCULAR HEMOGLOBIN 30.3 pg (28.0-32.0); MEAN CORPUSCULAR VOLUME 85.6 fL (80.0-94.0); MEAN PLATELET VOLUME 8.6 fl (7.4-10.4); MONOCYTES % 8.7 % (2.0-8.0); NEUTROPHILS % 60.3 % (40.0-76.0); PLATELET 172 x1000/uL (130-400); RED BLOOD CELL COUNT 4.45 mill/uL (4.7-6.1); RED CELL DISTRIBUTION WIDTH 13.2 % (11.6-14.6)
[2019-05-06 07:37] LABS: CHLORIDE 101 mEq/L (98-107)
[2019-05-06 07:43] LABS: PHOSPHORUS 4.7 mg/dL (2.5-4.9)
[2019-05-06 08:00] VITALS: BP 107/67
[2019-05-06] MEDS: FAMOTIDINE 20MG/2ML VIAL IV SCH ×2 (08:34→21:08)
[2019-05-06] MEDS: BENZTROPINE MESYLATE 1MG TABLET PO SCH ×2 (08:34→21:08)
[2019-05-06] MEDS ORDERED: POTASSIUM CHLORIDE 20MEQ TABLET SR PO NR (09:45)
[2019-05-06] MEDS: HALOPERIDOL 5MG TABLET PO SCH ×2 (10:46→21:09)
[2019-05-06] MEDS: INSULIN GLARGINE UD 100 UNITS/ML SYR SUBCUT SCH ×2 (10:51→22:59)
[2019-05-06] MEDS: SODIUM CHLORIDE 0.9% 1,000 ML IV SCH (10:51)
[2019-05-06 12:00] VITALS: BP 121/88
[2019-05-06] MEDS ORDERED: MAGNESIUM 2 G PREMIX 50 ML IV NR (12:00)
[2019-05-06 16:00] VITALS: BP 124/81
[2019-05-06] MEDS ORDERED: POTASSIUM CHLORIDE 20MEQ TABLET SR PO SCH (19:45)
[2019-05-06 20:00] VITALS: BP 120/75
[2019-05-07] VITALS: BP 128/90
[2019-05-07] MEDS: BLOOD SUGAR DIAGNOSTIC STRIP TEST SCH ×3 (00:46→12:29)
[2019-05-07] MEDS: INSULIN LISPRO 100 UNITS/ML SUBCUT SCH ×3 (00:51→12:35)
[2019-05-07 04:00] VITALS: BP 104/58
[2019-05-07 08:00] VITALS: BP 98/67
[2019-05-07 08:49] LABS: CHLORIDE 101 mEq/L (98-107)
[2019-05-07] MEDS: BENZTROPINE MESYLATE 1MG TABLET PO SCH (09:16)
[2019-05-07] MEDS: HALOPERIDOL 5MG TABLET PO SCH (09:16)
[2019-05-07] MEDS: INSULIN GLARGINE UD 100 UNITS/ML SYR SUBCUT SCH (09:18)
[2019-05-07] MEDS: FAMOTIDINE 20MG/2ML VIAL IV SCH (09:36)
[2019-05-07 12:00] VITALS: BP 119/72
[2019-05-07 15:56] VITALS: BP 119/72
== END 2019-05-07 16:22 | disposition home or self-care (01) | DRG 420 ==
LOC: ER 06:04 → 6EST 08:24 → ENRESERV 09:50 → CANRESERV 09:50 → ENRESERV 10:33
PROVIDERS: ADMIT Internal Medicine; ATTEND Internal Medicine
DX: E11.00 Type 2 diabetes mellitus with hyperosmolarity without nonketotic hyperglycemic-hyperosmolar coma (NKHHC) (principal); F20.9 Schizophrenia, unspecified; E86.0 Dehydration; J45.909 Unspecified asthma, uncomplicated; Z79.4 Long term (current) use of insulin; Z83.3 Family history of diabetes mellitus
CPT/HCPCS: 36415; 80048; 80305; 81003; 82962; 83735; 84100; 96361; 96374; 96375; 99285; J1630; J1815; J1885; J2270; J2405; J3475; J3490; J7030

== ENCOUNTER 2019-06-01 09:05 | Emergency (ER) | payer MEDICAID ==
[~2019-06-01] VITALS: Ht 172.7 cm; Wt 68.0 kg
[2019-06-01 09:56] LABS: BASOPHILS % 0.7 % (0.0-2.0); CLARITY URINE CLEAR (CLEAR); COLOR URINE YELLOW (YELLOW); EOSINOPHILS % 2.8 % (0.0-5.0); HEMATOCRIT. 42.3 % (42.0-52.0); HEMOGLOBIN. 14.4 g/dL (14.0-18.0); KETONES URINE NEGATIVE (NEGATIVE); LEUKOCYTE ESTERASE URINE NEGATIVE (NEGATIVE); LYMPHOCYTES % 20.4 % (20.0-50.0); MEAN CORPUSCULAR HEMOGLOBIN 30.5 pg (28.0-32.0); MEAN CORPUSCULAR VOLUME 89.8 fL (80.0-94.0); MEAN PLATELET VOLUME 8.9 fl (7.4-10.4); MONOCYTES % 6.9 % (2.0-8.0); NEUTROPHILS % 69.2 % (40.0-76.0); NITRITE URINE NEGATIVE (NEGATIVE); OCCULT BLOOD URINE NEGATIVE (NEGATIVE); PLATELET 245 x1000/uL (130-400); PROTEIN URINE NEGATIVE (NEGATIVE); RED BLOOD CELL COUNT 4.72 mill/uL (4.7-6.1); RED CELL DISTRIBUTION WIDTH 13.3 % (11.6-14.6); SPECIFIC GRAVITY URINE 1.038 (1.005-1.030); UROBILINOGEN URINE 0.2 E.U./dL (0.2-1.0)
[2019-06-01] MEDS ORDERED: ACETAMINOPHEN 325MG TABLET PO ONE (10:00)
[2019-06-01] MEDS ORDERED: ONDANSETRON HCL 4MG/2ML INJ IV ONE (10:00)
[2019-06-01] MEDS ORDERED: SODIUM CHLORIDE 0.9% 1,000 ML IV ONE ×2 (10:00→10:15)
[2019-06-01] MEDS ORDERED: DICYCLOMINE HCL 10MG/ML 2ML AMP IM ONE (10:00)
[2019-06-01 10:02] LABS: CHLORIDE 90 mEq/L (98-107)
[2019-06-01 10:08] LABS: PROTHROMBIN TIME 10.7 sec (9.6-11.0)
[2019-06-01] MEDS ORDERED: VISCOUS LIDOCAINE 2% 15 ML UDC PO STA (10:09)
[2019-06-01] MEDS ORDERED: MAGNESIUM/ALUMINUM HYDROXIDE/SIMETHICONE 30ML UDC PO STA (10:09)
[2019-06-01] MEDS ORDERED: FAMOTIDINE 20MG/2ML VIAL IV STA (10:09)
[2019-06-01] MEDS ORDERED: INSULIN REGULAR (HUMULIN R) 300UNITS/3ML SUBCUT ONE (10:15)
[2019-06-01] MEDS ORDERED: INSULIN REGULAR (HUMULIN R) 300UNITS/3ML SUBCUT NR (12:50)
[2019-06-01] MEDS ORDERED: ONDANSETRON HCL 4MG/2ML INJ IV NR (13:45)
[2019-06-01] MEDS ORDERED: MORPHINE SULFATE 4 MG/ML CPJ (NOT FOR IM USE) IV NR (13:45)
[2019-06-01 13:56] VITALS: BP 113/68
== END 2019-06-01 14:05 | disposition home or self-care (01) ==
LOC: ER 09:05
DX: R10.9 Unspecified abdominal pain (principal); R11.0 Nausea; E11.65 Type 2 diabetes mellitus with hyperglycemia; F20.9 Schizophrenia, unspecified; J45.909 Unspecified asthma, uncomplicated; Z79.4 Long term (current) use of insulin
CPT/HCPCS: 36415; 74176; 76705; 80053; 81003; 82962; 83690; 85025; 85610; 96372; 96374; 96375; 99284; J0500; J1815; J2270; J2405; J3490; J7030

== ENCOUNTER 2019-08-04 10:01 | Emergency (ER) | payer MEDICAID ==
[~2019-08-04] VITALS: Ht 172.7 cm; Wt 68.0 kg
[2019-08-04] MEDS ORDERED: SODIUM CHLORIDE 0.9% 1,000 ML IV ONE (10:59)
[2019-08-04] MEDS ORDERED: FAMOTIDINE 20MG/2ML VIAL IV STA (10:59)
[2019-08-04] MEDS ORDERED: ONDANSETRON HCL 4MG/2ML INJ IV STA (10:59)
[2019-08-04 11:00] VITALS: BP 122/74
[2019-08-04 11:28] LABS: BASOPHILS % 0.4 % (0.0-2.0); EOSINOPHILS % 0.1 % (0.0-5.0); HEMATOCRIT. 41.1 % (42.0-52.0); HEMOGLOBIN. 14.2 g/dL (14.0-18.0); MEAN CORPUSCULAR HEMOGLOBIN 29.5 pg (28.0-32.0); MEAN CORPUSCULAR VOLUME 85.5 fL (80.0-94.0); MEAN PLATELET VOLUME 8.7 fl (7.4-10.4); MONOCYTES % 6.1 % (2.0-8.0); NEUTROPHILS % 72.4 % (40.0-76.0); PLATELET 200 x1000/uL (130-400); RED CELL DISTRIBUTION WIDTH 14.4 % (11.6-14.6)
[2019-08-04] MEDS ORDERED: KETOROLAC 30MG/ML VIAL IV ONE (11:30)
[2019-08-04 11:35] LABS: PROTHROMBIN TIME 9.9 sec (9.6-11.0)
[2019-08-04 11:36] LABS: CHLORIDE 91 mEq/L (98-107)
[2019-08-04 11:44] LABS: ETHANOL BLOOD < 10 mg/dL
[2019-08-04] MEDS ORDERED: INSULIN REGULAR (HUMULIN R) 300UNITS/3ML IV ONE (11:45)
[2019-08-04 11:52] LABS: CLARITY URINE CLEAR (CLEAR); COLOR URINE YELLOW (YELLOW); KETONES URINE 4+ (NEGATIVE); LEUKOCYTE ESTERASE URINE NEGATIVE (NEGATIVE); NITRITE URINE NEGATIVE (NEGATIVE); OCCULT BLOOD URINE NEGATIVE (NEGATIVE); PROTEIN URINE NEGATIVE (NEGATIVE); SPECIFIC GRAVITY URINE 1.039 (1.005-1.030); UROBILINOGEN URINE 0.2 E.U./dL (0.2-1.0)
[2019-08-04 11:55] LABS: BETA HYDROXYBUTYRATE 4.8 mMol/L (0.0-0.3)
[2019-08-04 12:31] LABS: *AMPHETAMINES SCREEN URINE NEGATIVE (NEGATIVE); *COCAINE SCREEN URINE NEGATIVE (NEGATIVE); CANNABINOID URINE SCREEN PRESUMTIVE POSITIVE (NEGATIVE); METHADONE URINE SCREEN NEGATIVE (NEGATIVE); OPIATES URINE SCREEN NEGATIVE (NEGATIVE)
[2019-08-04 12:32] LABS: PHENCYCLIDINE URINE SCREEN NEGATIVE (NEGATIVE)
[2019-08-04 12:33] LABS: *BARBITURATES SCREEN URINE NEGATIVE (NEGATIVE)
[2019-08-04 12:38] LABS: *BENZODIAZEPINES SCREEN URINE NEGATIVE (NEGATIVE)
== END 2019-08-04 11:53 | disposition left against medical advice (07) ==
LOC: ER 10:01
DX: G89.29 Other chronic pain (principal); R10.13 Epigastric pain; E11.10 Type 2 diabetes mellitus with ketoacidosis without coma; J45.909 Unspecified asthma, uncomplicated; Z88.6 Allergy status to analgesic agent; Z79.4 Long term (current) use of insulin; Z79.899 Other long term (current) drug therapy
CPT/HCPCS: 36415; 71045; 80053; 80305; 80320; 81003; 82010; 82962; 83690; 83880; 84484; 85025; 85610; 93005; 96374; 96375; 99284; J1885; J2405; J3490; J7030; Z7610; G0480

== ENCOUNTER → 2019-08-20 | Emergency (ER) | payer MEDICAID ==
[~2019-08-20] VITALS: Ht 172.7 cm; Wt 69.0 kg
[~2019-08-20] MED LIST changes: +INSULIN REGULAR (HUMULIN R) 300UNITS/3ML SUBCUT ONE; +IOHEXOL-300 100 ML BOTTLE ONE; +KETOROLAC 30MG/ML VIAL IV STA; +MORPHINE SULFATE 2 MG/ML CPJ (NOT FOR IM USE) IV ONE; +ONDANSETRON HCL 4MG/2ML INJ IV ONE; +SODIUM CHLORIDE 0.9% 1,000 ML IV ONE; +SODIUM CHLORIDE 0.9% 500 ML IV ONE
[2019-08-20 03:45] LABS: CLARITY URINE CLEAR (CLEAR); COLOR URINE YELLOW (YELLOW); KETONES URINE 3+ (NEGATIVE); LEUKOCYTE ESTERASE URINE NEGATIVE (NEGATIVE); NITRITE URINE NEGATIVE (NEGATIVE); OCCULT BLOOD URINE NEGATIVE (NEGATIVE); PH URINE 5.5 (4.5-8.0); PROTEIN URINE NEGATIVE (NEGATIVE); SPECIFIC GRAVITY URINE 1.032 (1.005-1.030); UROBILINOGEN URINE 0.2 E.U./dL (0.2-1.0)
[2019-08-20 03:46] LABS: BASOPHILS % 0.5 % (0.0-2.0); EOSINOPHILS % 2.1 % (0.0-5.0); HEMATOCRIT. 38.1 % (42.0-52.0); HEMOGLOBIN. 12.9 g/dL (14.0-18.0); LYMPHOCYTES % 29.7 % (20.0-50.0); MEAN CORPUSCULAR HEMOGLOBIN 29.9 pg (28.0-32.0); MEAN CORPUSCULAR VOLUME 88.3 fL (80.0-94.0); MEAN PLATELET VOLUME 9.3 fl (7.4-10.4); MONOCYTES % 8.1 % (2.0-8.0); NEUTROPHILS % 59.6 % (40.0-76.0); PLATELET 132 x1000/uL (130-400); RED BLOOD CELL COUNT 4.32 mill/uL (4.7-6.1); RED CELL DISTRIBUTION WIDTH 14.7 % (11.6-14.6)
[2019-08-20 03:51] LABS: CHLORIDE 98 mEq/L (98-107)
[2019-08-20 03:52] LABS: INR 0.9; PROTHROMBIN TIME 9.8 sec (9.6-11.0)
[2019-08-20 03:55] LABS: ETHANOL BLOOD < 10 mg/dL
[2019-08-20 04:02] LABS: *AMPHETAMINES SCREEN URINE NEGATIVE (NEGATIVE); *BARBITURATES SCREEN URINE NEGATIVE (NEGATIVE); *BENZODIAZEPINES SCREEN URINE NEGATIVE (NEGATIVE); *COCAINE SCREEN URINE NEGATIVE (NEGATIVE); METHADONE URINE SCREEN NEGATIVE (NEGATIVE); OPIATES URINE SCREEN NEGATIVE (NEGATIVE)
[2019-08-20 04:03] LABS: CANNABINOID URINE SCREEN PRESUMTIVE POSITIVE (NEGATIVE); PHENCYCLIDINE URINE SCREEN NEGATIVE (NEGATIVE)
[2019-08-20 04:42] LABS: BG BASE EXCESS -6.2 mmol/L (-2.0-2.0); BG CARBOXYHEMOGLOBIN 0.8 % (0.5-1.5); BG DEOXYHEMOGLOBIN 3.1 % (0.0-5.0); BG FRACTION INSPIRED OXYGEN 21; BG HCO3 ACT 18.2 mmol/L (22.0-26.0); BG OXYGEN SATURATION 96.9 % (92.0-98.5); BG OXYHEMOGLOBIN 96.1 % (94.0-97.0); BG PCO2 32.8 mmHg (35.0-45.0); BG PH 7.362 (7.350-7.450); BG PO2 101.9 mmHg (75.0-100.0); BG SAMPLE SITE RIGHT RADIAL; BG TOTAL HEMOGLOBIN 12.9 g/dL (12.0-18.0); BG VENT MODE ROOM AIR
[2019-08-20 11:12] VITALS: BP 124/82
== END ==
LOC: ER 00:17 → EDBEDREQ 06:42 → EDBEDREQTM 06:42 → CANBEDREQ 11:40
DX: E11.9 Type 2 diabetes mellitus without complications (principal); R10.11 Right upper quadrant pain; K76.9 Liver disease, unspecified; Z79.4 Long term (current) use of insulin; Z79.899 Other long term (current) drug therapy; J45.909 Unspecified asthma, uncomplicated
CPT/HCPCS: 36415; 36600; 71045; 74177; 76705; 80053; 80305; 80320; 81003; 82010; 82375; 82805; 82962; 83690; 85025; 85610; 96361; 96372; 96374; 96375; 99284; J1815; J1885; J2270; J2405; J7030; Q9967; G0480

== ENCOUNTER 2020-01-16 18:57 | Emergency (ER) | payer MEDICAID ==
[~2020-01-16] VITALS: Ht 182.9 cm; Wt 77.0 kg
[~2020-01-16 18:57] MED LIST changes: -INSULIN REGULAR (HUMULIN R) 300UNITS/3ML SUBCUT ONE; -IOHEXOL-300 100 ML BOTTLE ONE; -KETOROLAC 30MG/ML VIAL IV STA; -MORPHINE SULFATE 2 MG/ML CPJ (NOT FOR IM USE) IV ONE; -ONDANSETRON HCL 4MG/2ML INJ IV ONE; -SODIUM CHLORIDE 0.9% 1,000 ML IV ONE; -SODIUM CHLORIDE 0.9% 500 ML IV ONE
[2020-01-16] MEDS ORDERED: SODIUM CHLORIDE 0.9% 1,000 ML IV ONE ×2 (19:40→22:15)
[2020-01-16] MEDS ORDERED: KETOROLAC 30MG/ML VIAL IV STA (19:40)
[2020-01-16] MEDS ORDERED: ONDANSETRON HCL 4MG/2ML INJ IV STA (19:40)
[2020-01-16 19:57] LABS: HEMATOCRIT. 30.1 % (42.0-52.0); HEMOGLOBIN. 9.6 g/dL (14.0-18.0); MEAN CORPUSCULAR VOLUME 69.2 fL (80.0-94.0); MEAN PLATELET VOLUME 7.3 fl (7.4-10.4); PLATELET 279 x1000/uL (130-400); RED BLOOD CELL COUNT 4.35 mill/uL (4.7-6.1)
[2020-01-16 20:03] LABS: CHLORIDE 90 mEq/L (98-107)
[2020-01-16 20:07] LABS: PROTHROMBIN TIME 10.2 sec (9.6-11.0)
[2020-01-16 20:10] LABS: CLARITY URINE CLEAR (CLEAR); COLOR URINE YELLOW (YELLOW); KETONES URINE NEGATIVE (NEGATIVE); LEUKOCYTE ESTERASE URINE NEGATIVE (NEGATIVE); NITRITE URINE NEGATIVE (NEGATIVE); OCCULT BLOOD URINE NEGATIVE (NEGATIVE); PROTEIN URINE NEGATIVE (NEGATIVE); SPECIFIC GRAVITY URINE 1.028 (1.005-1.030); UROBILINOGEN URINE 0.2 E.U./dL (0.2-1.0)
[2020-01-16 21:16] LABS: PLATELET ESTIMATE NORMAL
[2020-01-16] MEDS ORDERED: INSULIN LISPRO 100 UNITS/ML SUBCUT ONE (22:15)
[2020-01-16] MEDS ORDERED: MAGNESIUM CITRATE 300ML SOLUTION PO ONE (23:30)
[2020-01-17 00:43] VITALS: BP 124/75
== END 2020-01-17 00:43 | disposition home or self-care (01) ==
LOC: ER 18:57
DX: R10.9 Unspecified abdominal pain (principal); J45.909 Unspecified asthma, uncomplicated; E11.9 Type 2 diabetes mellitus without complications; F20.9 Schizophrenia, unspecified; Z88.6 Allergy status to analgesic agent; Z79.4 Long term (current) use of insulin
CPT/HCPCS: 36415; 74176; 80053; 81003; 83690; 85025; 85610; 93005; 96361; 96372; 96374; 96375; 99285; J1815; J1885; J2405; J7030

== ENCOUNTER 2020-02-05 19:13 | Emergency (ER) | payer MEDICAID ==
[~2020-02-05] VITALS: Ht 170.2 cm; Wt 69.0 kg
[2020-02-05 22:58] LABS: CLARITY URINE CLEAR (CLEAR); COLOR URINE YELLOW (YELLOW); KETONES URINE NEGATIVE (NEGATIVE); LEUKOCYTE ESTERASE URINE NEGATIVE (NEGATIVE); NITRITE URINE NEGATIVE (NEGATIVE); OCCULT BLOOD URINE NEGATIVE (NEGATIVE); PH URINE 7.5 (4.5-8.0); PROTEIN URINE NEGATIVE (NEGATIVE); SPECIFIC GRAVITY URINE 1.037 (1.005-1.030); UROBILINOGEN URINE 0.2 E.U./dL (0.2-1.0)
[2020-02-05 23:02] LABS: HEMATOCRIT. 28.1 % (42.0-52.0); HEMOGLOBIN. 8.7 g/dL (14.0-18.0); MEAN CORPUSCULAR HEMOGLOBIN 21.1 pg (28.0-32.0); MEAN CORPUSCULAR VOLUME 68.4 fL (80.0-94.0); MEAN PLATELET VOLUME 7.8 fl (7.4-10.4); PLATELET 307 x1000/uL (130-400); RED BLOOD CELL COUNT 4.11 mill/uL (4.7-6.1); RED CELL DISTRIBUTION WIDTH 16.8 % (11.6-14.6)
[2020-02-05 23:08] LABS: CHLORIDE 94 mEq/L (98-107)
[2020-02-05 23:15] LABS: ETHANOL BLOOD < 10 mg/dL
[2020-02-05] MEDS ORDERED: OLANZAPINE 10 MG/VIAL IM ONE (23:15)
[2020-02-05 23:19] LABS: PLATELET ESTIMATE NORMAL
[2020-02-05 23:20] LABS: *AMPHETAMINES SCREEN URINE NEGATIVE (NEGATIVE)
[2020-02-05 23:21] LABS: *BARBITURATES SCREEN URINE NEGATIVE (NEGATIVE); *BENZODIAZEPINES SCREEN URINE NEGATIVE (NEGATIVE); *COCAINE SCREEN URINE NEGATIVE (NEGATIVE); METHADONE URINE SCREEN NEGATIVE (NEGATIVE); OPIATES URINE SCREEN NEGATIVE (NEGATIVE); PHENCYCLIDINE URINE SCREEN NEGATIVE (NEGATIVE)
[2020-02-05 23:22] LABS: CANNABINOID URINE SCREEN NEGATIVE (NEGATIVE)
[2020-02-06] MEDS ORDERED: SODIUM CHLORIDE 0.9% 1,000 ML IV ONE (00:07)
[2020-02-06] MEDS ORDERED: MORPHINE SULFATE 4 MG/ML CPJ (NOT FOR IM USE) IV STA (00:07)
[2020-02-06] MEDS ORDERED: ONDANSETRON HCL 4MG/2ML INJ IV STA (00:07)
[2020-02-06 05:52] VITALS: BP 130/74
== END 2020-02-06 06:00 | disposition home or self-care (01) ==
LOC: ER 19:13
DX: E11.9 Type 2 diabetes mellitus without complications (principal); R44.0 Auditory hallucinations; J45.909 Unspecified asthma, uncomplicated; F12.10 Cannabis abuse, uncomplicated; Z79.899 Other long term (current) drug therapy; Z88.6 Allergy status to analgesic agent
CPT/HCPCS: 36415; 76700; 80053; 80305; 80307; 80320; 80329; 81003; 83690; 85025; 93005; 96361; 96372; 96374; 96375; 99285; J2270; J2405; J3490; J7030; G0480

== ENCOUNTER 2020-02-08 09:33 | Inpatient (IN) | payer MEDICAID ==
[~2020-02-08] VITALS: Ht 172.7 cm; Wt 50.8 kg
[2020-02-08] MEDS ORDERED: KETOROLAC 30MG/ML VIAL IV STA (10:20)
[2020-02-08] MEDS ORDERED: SODIUM CHLORIDE 0.9% 1,000 ML IV ONE ×2 (10:20→12:15)
[2020-02-08] MEDS ORDERED: MAGNESIUM/ALUMINUM HYDROXIDE/SIMETHICONE 30ML UDC PO STA (10:20)
[2020-02-08] MEDS ORDERED: ONDANSETRON HCL 4MG/2ML INJ IV STA ×2 (10:20→11:07)
[2020-02-08 10:56] LABS: BASOPHILS % 0.4 % (0.0-2.0); EOSINOPHILS % 0.1 % (0.0-5.0); HEMATOCRIT. 27.8 % (42.0-52.0); HEMOGLOBIN. 8.9 g/dL (14.0-18.0); LYMPHOCYTES % 18.9 % (20.0-50.0); MEAN CORPUSCULAR HEMOGLOBIN 21.1 pg (28.0-32.0); MEAN CORPUSCULAR VOLUME 65.8 fL (80.0-94.0); MEAN PLATELET VOLUME 7.2 fl (7.4-10.4); MONOCYTES % 5.7 % (2.0-8.0); NEUTROPHILS % 74.9 % (40.0-76.0); PLATELET 322 x1000/uL (130-400); RED BLOOD CELL COUNT 4.23 mill/uL (4.7-6.1); RED CELL DISTRIBUTION WIDTH 16.5 % (11.6-14.6)
[2020-02-08 11:03] LABS: CHLORIDE 80 mEq/L (98-107)
[2020-02-08 11:05] LABS: INR 1.1; PROTHROMBIN TIME 11.6 sec (9.6-11.0)
[2020-02-08 11:07] LABS: ETHANOL BLOOD < 10 mg/dL
[2020-02-08] MEDS ORDERED: MORPHINE SULFATE 4 MG/ML CPJ (NOT FOR IM USE) IV STA (11:07)
[2020-02-08 11:46] LABS: *BARBITURATES SCREEN URINE NEGATIVE (NEGATIVE)
[2020-02-08 11:47] LABS: *AMPHETAMINES SCREEN URINE NEGATIVE (NEGATIVE); *BENZODIAZEPINES SCREEN URINE NEGATIVE (NEGATIVE); *COCAINE SCREEN URINE NEGATIVE (NEGATIVE); METHADONE URINE SCREEN NEGATIVE (NEGATIVE); OPIATES URINE SCREEN NEGATIVE (NEGATIVE)
[2020-02-08 11:48] LABS: CANNABINOID URINE SCREEN NEGATIVE (NEGATIVE); PHENCYCLIDINE URINE SCREEN NEGATIVE (NEGATIVE)
[2020-02-08 12:19] LABS: PLATELET ESTIMATE NORMAL
[2020-02-08] MEDS ORDERED: LORAZEPAM 2MG/ML CPJ IV ONE (13:15)
[2020-02-08] MEDS ORDERED: ONDANSETRON HCL 4MG/2ML INJ IV PRN (14:45)
[2020-02-08] MEDS ORDERED: INSULIN GLARGINE UD 100 UNITS/ML SYR SUBCUT NR (14:45)
[2020-02-08 16:21] LABS: CLARITY URINE CLEAR (CLEAR); COLOR URINE YELLOW (YELLOW); KETONES URINE 3+ (NEGATIVE); LEUKOCYTE ESTERASE URINE NEGATIVE (NEGATIVE); NITRITE URINE NEGATIVE (NEGATIVE); OCCULT BLOOD URINE NEGATIVE (NEGATIVE); PROTEIN URINE NEGATIVE (NEGATIVE); SPECIFIC GRAVITY URINE 1.013 (1.005-1.030); UROBILINOGEN URINE 0.2 E.U./dL (0.2-1.0)
[2020-02-08 16:40] VITALS: BP 117/70
[2020-02-08] MEDS: SODIUM CHLORIDE 0.9% 1,000 ML IV SCH (16:55)
[2020-02-08] MEDS: METOCLOPRAMIDE HCL 10MG/2ML VIAL IV SCH ×2 (17:31→23:19)
[2020-02-08] MEDS: MORPHINE SULFATE 2 MG/ML CPJ (NOT FOR IM USE) IV PRN ×2 (18:51→23:20)
[2020-02-08 20:00] VITALS: BP 122/73
[2020-02-08] MEDS ORDERED: INSULIN GLARGINE UD 100 UNITS/ML SYR SUBCUT SCH (22:00)
[2020-02-08] MEDS: INSULIN GLARGINE UD 100 UNITS/ML SYR SUBCUT SCH (22:04)
[2020-02-08 22:08] LABS: CHLORIDE 94 mEq/L (98-107)
[2020-02-09] VITALS: BP 108/64
[2020-02-09] MEDS: MORPHINE SULFATE 2 MG/ML CPJ (NOT FOR IM USE) IV PRN ×2 (03:38→10:06)
[2020-02-09 04:00] VITALS: BP 112/76
[2020-02-09] MEDS: SODIUM CHLORIDE 0.9% 1,000 ML IV SCH (04:20)
[2020-02-09 05:41] LABS: BASOPHILS % 0.6 % (0.0-2.0); EOSINOPHILS % 0.3 % (0.0-5.0); HEMATOCRIT. 25.6 % (42.0-52.0); LYMPHOCYTES % 27.8 % (20.0-50.0); MEAN CORPUSCULAR HEMOGLOBIN 20.9 pg (28.0-32.0); MEAN CORPUSCULAR VOLUME 66.6 fL (80.0-94.0); MEAN PLATELET VOLUME 7.2 fl (7.4-10.4); MONOCYTES % 11.7 % (2.0-8.0); NEUTROPHILS % 59.6 % (40.0-76.0); PLATELET 262 x1000/uL (130-400); RED BLOOD CELL COUNT 3.85 mill/uL (4.7-6.1); RED CELL DISTRIBUTION WIDTH 16.6 % (11.6-14.6)
[2020-02-09 05:45] LABS: CHLORIDE 96 mEq/L (98-107)
[2020-02-09] MEDS ORDERED: DEXTROSE 50% WATER 50ML SYRINGE IV PRN (06:30)
[2020-02-09] MEDS: METOCLOPRAMIDE HCL 10MG/2ML VIAL IV SCH ×4 (06:36→22:41)
[2020-02-09] MEDS: BLOOD SUGAR DIAGNOSTIC STRIP TEST SCH ×4 (07:05→20:37)
[2020-02-09] MEDS: INSULIN LISPRO 100 UNITS/ML SUBCUT SCH ×4 (08:59→20:37)
[2020-02-09] MEDS: INSULIN GLARGINE UD 100 UNITS/ML SYR SUBCUT SCH ×2 (10:41→22:40)
[2020-02-09] MEDS ORDERED: SODIUM CHLORIDE 0.45% 1,000 ML IV SCH (13:30)
[2020-02-09] MEDS: ALPRAZOLAM 0.25 MG TABLET PO PRN ×2 (14:02→22:41)
[2020-02-09] MEDS ORDERED: KETOROLAC 30MG/ML VIAL IV PRN (16:11)
[2020-02-09 20:00] VITALS: BP 112/54
[2020-02-10] VITALS: BP 116/67
[2020-02-10 04:00] VITALS: BP 108/60
[2020-02-10] MEDS: BLOOD SUGAR DIAGNOSTIC STRIP TEST SCH ×2 (06:43→12:23)
[2020-02-10] MEDS: INSULIN LISPRO 100 UNITS/ML SUBCUT SCH ×2 (06:45→13:08)
[2020-02-10] MEDS: METOCLOPRAMIDE HCL 10MG/2ML VIAL IV SCH ×3 (06:54→13:13)
[2020-02-10 07:15] LABS: CHLORIDE 98 mEq/L (98-107)
[2020-02-10 07:24] LABS: LDL CHOLESTEROL 63 mg/dL (5-100)
[2020-02-10 07:25] LABS: HDL CHOLESTEROL 36 mg/dL (40-59)
[2020-02-10 08:00] VITALS: BP 109/64
[2020-02-10] MEDS: INSULIN GLARGINE UD 100 UNITS/ML SYR SUBCUT SCH (10:36)
[2020-02-10] MEDS ORDERED: TRAMADOL 50MG TABLET PO PRN (10:45)
[2020-02-10] MEDS ORDERED: METO-293 MT (11:20)
[2020-02-10] MEDS ORDERED: INSU100I28 SQ (11:20)
[2020-02-10 12:00] VITALS: BP 121/74
[2020-02-10] MEDS ORDERED: INSULIN LISPRO 100 UNITS/ML SUBCUT SCH (12:20)
[2020-02-10 14:35] VITALS: BP 121/74
[2020-02-10 16:00] VITALS: BP 94/56
[2020-02-10] MEDS ORDERED: INSULIN GLARGINE UD 100 UNITS/ML SYR SUBCUT SCH (22:00)
== END 2020-02-10 16:00 | disposition home or self-care (01) | DRG 48 ==
LOC: ER 09:33 → 6EST 12:39 → ENRESERV 15:24
PROVIDERS: ADMIT Internal Medicine; ATTEND Internal Medicine
DX: E11.43 Type 2 diabetes mellitus with diabetic autonomic (poly)neuropathy (principal); K31.84 Gastroparesis; D64.9 Anemia, unspecified; D72.819 Decreased white blood cell count, unspecified; E87.1 Hypo-osmolality and hyponatremia; E87.8 Other disorders of electrolyte and fluid balance, not elsewhere classified; F20.9 Schizophrenia, unspecified; J45.909 Unspecified asthma, uncomplicated; N32.89 Other specified disorders of bladder; F41.9 Anxiety disorder, unspecified; Z88.6 Allergy status to analgesic agent; Z79.4 Long term (current) use of insulin; Z79.899 Other long term (current) drug therapy; R65.10 Systemic inflammatory response syndrome (SIRS) of non-infectious origin without acute organ dysfunction; E44.1 Mild protein-calorie malnutrition; Z68.1 Body mass index [BMI] 19.9 or less, adult; Z76.5 Malingerer [conscious simulation]
CPT/HCPCS: 36415; 74176; 80048; 80053; 80061; 80305; 80320; 81003; 82533; 82962; 83036; 83930; 84300; 84443; 85025; 93005; 99285; J1815; J1885; J2060; J2270; J2405; J2765; J7030; G0480

== ENCOUNTER 2020-04-13 22:34 | Emergency (ER) | payer MEDICAID ==
[~2020-04-13] VITALS: Ht 172.7 cm; Wt 73.0 kg
[~2020-04-13 22:34] MED LIST changes: +INSU100I28 SQ; +METO-293 MT
[2020-04-13] MEDS ORDERED: HYDROCODONE/ACETAMINOPHEN 5/325MG TABLET PO ONE (23:00)
[2020-04-13 23:37] LABS: CHLORIDE 90 mEq/L (98-107)
[2020-04-13 23:46] LABS: BASOPHILS % 1.1 % (0.0-2.0); HEMATOCRIT. 32.5 % (42.0-52.0); HEMOGLOBIN. 10.4 g/dL (14.0-18.0); LYMPHOCYTES % 25.2 % (20.0-50.0); MEAN PLATELET VOLUME 7.7 fl (7.4-10.4); MONOCYTES % 7.2 % (2.0-8.0); NEUTROPHILS % 61.5 % (40.0-76.0); PLATELET 247 x1000/uL (130-400); RED BLOOD CELL COUNT 4.71 mill/uL (4.7-6.1); RED CELL DISTRIBUTION WIDTH 19.5 % (11.6-14.6)
[2020-04-14] MEDS ORDERED: ONDANSETRON HCL 4MG/2ML INJ IV NR (00:19)
[2020-04-14] MEDS ORDERED: MORPHINE SULFATE 4 MG/ML CPJ (NOT FOR IM USE) IV NR (00:19)
[2020-04-14] MEDS ORDERED: INSULIN REGULAR (HUMULIN R) 300UNITS/3ML SUBCUT NR (00:30)
[2020-04-14] MEDS ORDERED: SODIUM CHLORIDE 0.9% 1,000 ML IV NR (00:30)
[2020-04-14 00:31] LABS: CLARITY URINE CLEAR (CLEAR); COLOR URINE YELLOW (YELLOW); KETONES URINE 1+ (NEGATIVE); LEUKOCYTE ESTERASE URINE NEGATIVE (NEGATIVE); NITRITE URINE NEGATIVE (NEGATIVE); OCCULT BLOOD URINE NEGATIVE (NEGATIVE); PH URINE 6.5 (4.5-8.0); PROTEIN URINE NEGATIVE (NEGATIVE); SPECIFIC GRAVITY URINE 1.049 (1.005-1.030); UROBILINOGEN URINE 0.2 E.U./dL (0.2-1.0)
[2020-04-14] MEDS ORDERED: HYDROCODONE/ACETAMINOPHEN 5/325MG TABLET PO ONE (01:30)
[2020-04-14 01:34] VITALS: BP 118/76
[2020-04-14 01:36] LABS: BG BASE EXCESS -1.8 mmol/L (-2.0-2.0); BG CARBOXYHEMOGLOBIN 0.3 % (0.5-1.5); BG DEOXYHEMOGLOBIN 3.8 % (0.0-5.0); BG FRACTION INSPIRED OXYGEN 21; BG HCO3 ACT 22.7 mmol/L (22.0-26.0); BG METHEMOGLOBIN 0.8 % (0.0-1.5); BG OXYGEN SATURATION 96.2 % (92.0-98.5); BG OXYHEMOGLOBIN 95.1 % (94.0-97.0); BG PCO2 37.4 mmHg (35.0-45.0); BG PH 7.401 (7.350-7.450); BG PO2 91.4 mmHg (75.0-100.0); BG SAMPLE SITE RIGHT RADIAL; BG TOTAL HEMOGLOBIN 10.4 g/dL (12.0-18.0); BG VENT MODE ROOM AIR
[2020-04-14 03:29] LABS: PLATELET ESTIMATE NORMAL
== END 2020-04-14 02:01 | disposition home or self-care (01) ==
LOC: ER 23:23
DX: E11.65 Type 2 diabetes mellitus with hyperglycemia (principal); D50.9 Iron deficiency anemia, unspecified; E11.9 Type 2 diabetes mellitus without complications; Z79.899 Other long term (current) drug therapy; Z79.82 Long term (current) use of aspirin; Z79.4 Long term (current) use of insulin
CPT/HCPCS: 36415; 36600; 76705; 80053; 81003; 82010; 82375; 82805; 83690; 85025; 93005; 96361; 96372; 96374; 96375; 99285; J1815; J2270; J2405

== ENCOUNTER 2020-05-26 08:31 | Emergency (ER) | payer MEDICAID ==
[~2020-05-26] VITALS: Ht 172.7 cm; Wt 58.0 kg
[2020-05-26 09:19] VITALS: BP 100/62
[2020-05-26] MEDS ORDERED: KETOROLAC 30MG/ML VIAL IV STA (09:43)
[2020-05-26 11:11] LABS: CLARITY URINE CLEAR (CLEAR); COLOR URINE YELLOW (YELLOW); KETONES URINE 3+ (NEGATIVE); LEUKOCYTE ESTERASE URINE NEGATIVE (NEGATIVE); NITRITE URINE NEGATIVE (NEGATIVE); OCCULT BLOOD URINE NEGATIVE (NEGATIVE); PROTEIN URINE NEGATIVE (NEGATIVE); SPECIFIC GRAVITY URINE 1.045 (1.005-1.030); UROBILINOGEN URINE 0.2 E.U./dL (0.2-1.0)
== END 2020-05-26 11:17 | disposition left against medical advice (07) ==
LOC: ER 08:46
DX: R10.30 Lower abdominal pain, unspecified (principal); R50.9 Fever, unspecified; E11.9 Type 2 diabetes mellitus without complications; F20.9 Schizophrenia, unspecified; Z79.899 Other long term (current) drug therapy; Z88.6 Allergy status to analgesic agent
CPT/HCPCS: 81003; 99283

== ENCOUNTER 2020-09-15 16:47 | Emergency (ER) | payer MEDICAID ==
[~2020-09-15] VITALS: Ht 175.3 cm; Wt 59.0 kg
[2020-09-15 18:05] LABS: BASOPHILS % 0.3 % (0.0-2.0); HEMATOCRIT. 32.9 % (42.0-52.0); HEMOGLOBIN. 10.9 g/dL (14.0-18.0); LYMPHOCYTES % 16.3 % (20.0-50.0); MEAN CORPUSCULAR HEMOGLOBIN 27.9 pg (28.0-32.0); MEAN CORPUSCULAR VOLUME 84.3 fL (80.0-94.0); MEAN PLATELET VOLUME 7.7 fl (7.4-10.4); MONOCYTES % 5.5 % (2.0-8.0); NEUTROPHILS % 76.9 % (40.0-76.0); PLATELET 320 x1000/uL (130-400); RED BLOOD CELL COUNT 3.91 mill/uL (4.7-6.1); RED CELL DISTRIBUTION WIDTH 15.6 % (11.6-14.6)
[2020-09-15 18:11] LABS: CHLORIDE 91 mEq/L (98-107)
[2020-09-15 18:15] LABS: ETHANOL BLOOD < 10 mg/dL; INR 1.1; PROTHROMBIN TIME 11.3 sec (9.6-11.0)
[2020-09-15] MEDS: SODIUM CHLORIDE 0.9% 1,000 ML IV ONE (18:27)
[2020-09-15] MEDS: ONDANSETRON HCL 4MG/2ML INJ IV STA (18:29)
[2020-09-15] MEDS: METOCLOPRAMIDE HCL 10MG/2ML VIAL IV STA (18:29)
[2020-09-15 18:58] LABS: CLARITY URINE CLEAR (CLEAR); COLOR URINE YELLOW (YELLOW); KETONES URINE TRACE (NEGATIVE); LEUKOCYTE ESTERASE URINE NEGATIVE (NEGATIVE); NITRITE URINE NEGATIVE (NEGATIVE); OCCULT BLOOD URINE NEGATIVE (NEGATIVE); PROTEIN URINE NEGATIVE (NEGATIVE); SPECIFIC GRAVITY URINE 1.042 (1.005-1.030); UROBILINOGEN URINE 0.2 E.U./dL (0.2-1.0)
[2020-09-15] MEDS: LACTATED RINGERS 1,000 ML IV SCH (20:57)
[2020-09-15] MEDS: INSULIN REGULAR (HUMULIN R) 300UNITS/3ML VIAL IV ONE (20:58)
[2020-09-15] MEDS: MORPHINE SULFATE 2 MG/ML CPJ (NOT FOR IM USE) IV ONE (20:58)
[2020-09-15 22:00] VITALS: BP 114/76
== END 2020-09-15 22:40 | disposition home or self-care (01) ==
LOC: ER 16:47
DX: R10.9 Unspecified abdominal pain (principal); E11.65 Type 2 diabetes mellitus with hyperglycemia; J45.909 Unspecified asthma, uncomplicated; F20.9 Schizophrenia, unspecified; F17.290 Nicotine dependence, other tobacco product, uncomplicated; Z98.890 Other specified postprocedural states; Z79.4 Long term (current) use of insulin; Z79.899 Other long term (current) drug therapy
CPT/HCPCS: 36415; 71045; 76705; 80053; 80320; 81003; 82962; 83690; 85025; 85610; 93005; 96361; 96374; 96375; 99285; J1815; J2270; J7030; Z7610; J2405; J2765; G0480

== ENCOUNTER 2020-12-24 08:00 | Emergency (ER) | payer MEDICAID ==
[~2020-12-24] VITALS: Ht 175.3 cm; Wt 59.0 kg
[2020-12-24] MEDS ORDERED: MORPHINE SULFATE 4 MG/ML CPJ (NOT FOR IM USE) IV STA (08:46)
[2020-12-24] MEDS ORDERED: ONDANSETRON HCL 4MG/2ML INJ IV STA (08:46)
[2020-12-24] MEDS ORDERED: SODIUM CHLORIDE 0.9% 1,000 ML IV ONE (09:00)
[2020-12-24 09:03] VITALS: BP 125/85
[2020-12-24 09:27] LABS: CLARITY URINE CLEAR (CLEAR); COLOR URINE YELLOW (YELLOW); KETONES URINE 2+ (NEGATIVE); LEUKOCYTE ESTERASE URINE NEGATIVE (NEGATIVE); NITRITE URINE NEGATIVE (NEGATIVE); OCCULT BLOOD URINE NEGATIVE (NEGATIVE); PROTEIN URINE TRACE (NEGATIVE); SPECIFIC GRAVITY URINE 1.044 (1.005-1.030); UROBILINOGEN URINE 0.2 E.U./dL (0.2-1.0)
== END 2020-12-24 09:44 | disposition left against medical advice (07) ==
LOC: ER 08:00
DX: R10.11 Right upper quadrant pain (principal); E11.65 Type 2 diabetes mellitus with hyperglycemia; J45.909 Unspecified asthma, uncomplicated; F20.9 Schizophrenia, unspecified; Z79.899 Other long term (current) drug therapy
CPT/HCPCS: 81003; 96361; 96374; 96375; 99284; J2270; J2405; J7030

== ENCOUNTER 2021-02-23 14:10 | Emergency (ER) | payer MEDICAID ==
[~2021-02-23] VITALS: Ht 172.7 cm; Wt 64.0 kg
[2021-02-23] MEDS ORDERED: ONDANSETRON 4MG ODT PO STA (14:57)
[2021-02-23 15:36] LABS: BASOPHILS % 0.4 % (0.0-2.0); EOSINOPHILS % 2.2 % (0.0-5.0); HEMATOCRIT. 34.1 % (42.0-52.0); HEMOGLOBIN. 11.7 g/dL (14.0-18.0); MEAN CORPUSCULAR HEMOGLOBIN 26.4 pg (28.0-32.0); MEAN CORPUSCULAR VOLUME 76.6 fL (80.0-94.0); MEAN PLATELET VOLUME 8.3 fl (7.4-10.4); MONOCYTES % 5.2 % (2.0-8.0); NEUTROPHILS % 70.2 % (40.0-76.0); PLATELET 192 x1000/uL (130-400); RED BLOOD CELL COUNT 4.45 mill/uL (4.7-6.1); RED CELL DISTRIBUTION WIDTH 15.9 % (11.6-14.6)
[2021-02-23 15:40] LABS: CHLORIDE 96 mEq/L (98-107)
[2021-02-23 15:43] LABS: PROTHROMBIN TIME 11.1 sec (9.6-11.0)
[2021-02-23] MEDS ORDERED: OXYCODONE HCL 5MG TABLET PO ONE (15:45)
[2021-02-23 18:43] VITALS: BP 134/75
== END 2021-02-23 19:15 | disposition home or self-care (01) ==
LOC: ER 14:21
DX: R10.11 Right upper quadrant pain (principal); J45.909 Unspecified asthma, uncomplicated; E11.9 Type 2 diabetes mellitus without complications; F20.9 Schizophrenia, unspecified; Z79.899 Other long term (current) drug therapy
CPT/HCPCS: 36415; 70450; 74177; 76700; 80053; 83605; 83690; 85025; 85610; 99285; Q0162

== ENCOUNTER 2022-04-22 15:30 | Emergency (ER) | payer MEDICAID ==
[~2022-04-22] VITALS: Ht 172.7 cm; Wt 69.0 kg
[2022-04-22] MEDS ORDERED: SULF1TAB48 MT (16:52)
[2022-04-22] MEDS ORDERED: CEPH500C2 MT (16:52)
[2022-04-22] MEDS ORDERED: BACITRACIN ZINC OINT UDPKT TOP ONE (17:15)
[2022-04-22 17:45] VITALS: BP 118/79
== END 2022-04-22 17:45 | disposition left against medical advice (07) ==
LOC: ER 15:30
DX: S01.00XA Unspecified open wound of scalp, initial encounter (principal); E11.9 Type 2 diabetes mellitus without complications; J45.909 Unspecified asthma, uncomplicated; F20.9 Schizophrenia, unspecified; X58.XXXA Exposure to other specified factors, initial encounter; Y93.9 Activity, unspecified; Y92.89 Other specified places as the place of occurrence of the external cause; Z88.6 Allergy status to analgesic agent
CPT/HCPCS: 99283

== ENCOUNTER 2022-05-25 01:07 | Emergency (ER) | payer MEDICAID ==
[~2022-05-25] VITALS: Ht 172.7 cm; Wt 70.0 kg
[~2022-05-25 01:07] MED LIST changes: +CEPH500C2 MT; +SULF1TAB48 MT
[2022-05-25 01:10] VITALS: BP 108/80
[2022-05-25] MEDS ORDERED: BACITRACIN ZINC OINT UDPKT TOP ONE (02:45)
[2022-05-25] MEDS ORDERED: CEPHALEXIN 250MG CAPSULE PO ONE (02:45)
== END 2022-05-25 03:35 | disposition left against medical advice (07) ==
LOC: ER 01:07
DX: S00.01XA Abrasion of scalp, initial encounter (principal); F20.9 Schizophrenia, unspecified; E11.9 Type 2 diabetes mellitus without complications; J45.909 Unspecified asthma, uncomplicated; Z79.4 Long term (current) use of insulin; Z88.6 Allergy status to analgesic agent; X58.XXXA Exposure to other specified factors, initial encounter; Y93.89 Activity, other specified; Y92.488 Other paved roadways as the place of occurrence of the external cause
CPT/HCPCS: 99283

== ENCOUNTER 2022-12-17 22:37 | Emergency (ER) | payer MEDICAID ==
[~2022-12-17] VITALS: Ht 172.7 cm; Wt 72.0 kg
[~2022-12-17 22:37] MED LIST changes: -BENZ1TAB7 PO; +BENZ1TAB79 PO
[2022-12-17 22:43] VITALS: BP 150/102
[2022-12-17] MEDS ORDERED: ONDANSETRON HCL 4MG/2ML INJ IV ONE (22:45)
[2022-12-17] MEDS ORDERED: MAGNESIUM/ALUMINUM HYDROXIDE/SIMETHICONE 30ML UDC PO ONE (22:45)
[2022-12-17 23:08] LABS: BASOPHILS % 0.3 % (0.0-2.0); HEMATOCRIT. 28.1 % (42.0-52.0); LYMPHOCYTES % 10.6 % (20.0-50.0); MEAN CORPUSCULAR HEMOGLOBIN 28.9 pg (28.0-32.0); MEAN CORPUSCULAR VOLUME 81.2 fL (80.0-94.0); MEAN PLATELET VOLUME 7.2 fl (7.4-10.4); MONOCYTES % 4.2 % (2.0-8.0); NEUTROPHILS % 83.9 % (40.0-76.0); PLATELET 162 x1000/uL (130-400); RED BLOOD CELL COUNT 3.46 mill/uL (4.7-6.1); RED CELL DISTRIBUTION WIDTH 14.2 % (11.6-14.6)
[2022-12-17 23:16] LABS: CHLORIDE 90 mEq/L (98-107); INR 1.1; PROTHROMBIN TIME 11.4 sec (9.6-11.0)
[2022-12-18] MEDS ORDERED: SODIUM CHLORIDE 0.9% 1,000 ML IV ONE (00:30)
== END 2022-12-18 00:10 | disposition left against medical advice (07) ==
LOC: ER 22:37
DX: R10.11 Right upper quadrant pain (principal); E87.1 Hypo-osmolality and hyponatremia; D64.9 Anemia, unspecified; J45.909 Unspecified asthma, uncomplicated; E11.9 Type 2 diabetes mellitus without complications; F20.9 Schizophrenia, unspecified; Z79.899 Other long term (current) drug therapy
CPT/HCPCS: 36415; 76705; 80053; 83690; 85025; 85610; 96361; 96374; 99285; J2405